=== PATIENT | male | born 1950 | race Caucasian/White ===

== ENCOUNTER → 2016-05-12 | Outpatient (CLI) | payer MEDICARE, OTHER ==
[~2016-05-12] MED LIST: ASCO10002 PO; ASPI-482 PO; ATORVASTATIN CA80 MG PO; CALC625T20 PO; CINN500C PO; FLAX100031 PO; GARL1500 PO; GINK120T3 PO; GUAR1PAC2 PO; MELA3TAB12 PO; METF500T4 PO; MULT-246 PO; OMEG1CAP28 PO; OMEP40CA5 PO; UBID100T5 PO; [UNRECOGNIZED DRUG - CODE] PO; [UNRECOGNIZED DRUG - CODE] PO
[2016-05-12 17:04] LABS: BASO # 0.1 x10^3/uL (0.0-0.2); BASO % 1 % (0-3); EOS % 2 % (0-3); HEMATOCRIT 45.4 % (39.0-53.0); LYMPH # 1.6 x10^3/uL (1.0-4.8); LYMPH % 15 % (24-48); MEAN CORPUSCULAR HEMOGLOBIN 31 pg (25-35); MEAN CORPUSCULAR HGB CONC 33 g/dL (31-37); MEAN CORPUSCULAR VOLUME 93 fL (79-100); MONO % 13 % (0-9); NEUT % 70 % (31-73); PLATELET COUNT 292 x10^3/uL (140-400); RED BLOOD COUNT 4.88 x10^6/uL (4.30-5.70); RED CELL DISTRIBUTION WIDTH 13.7 % (11.5-14.5); WHITE BLOOD COUNT 10.7 x10^3/uL (4.0-11.0)
[2016-05-12 17:30] LABS: ALBUMIN 4.1 g/dL (3.4-5.0); ALBUMIN/GLOBULIN RATIO 1.1 (1.0-1.7); CALCIUM 9.7 mg/dL (8.5-10.1); CREATININE 0.9 mg/dL (0.7-1.3); GFR 84.7; TOTAL BILIRUBIN 0.6 mg/dL (0.2-1.0)
== END | disposition home or self-care (01) ==
LOC: LAB 16:45
PROVIDERS: ATTEND Internal Medicine Hematology & Oncology
DX: Z85.72 Personal history of non-Hodgkin lymphomas (principal)
CPT/HCPCS: 36415; 80053; 82232; 82784; 85027

== ENCOUNTER → 2016-06-18 | Day surgery (SDC) | payer MEDICARE, OTHER ==
[~2016-06-18] MED LIST changes: +BENZ100C PO; +FENTANYL PF 100 MCG/2 ML VIAL. IV PRN; +HYDROMORPHONE 2 MG/ML VIAL. IV PRN; +IBUP200T77 PO; +IV RINGERS,LACTATED 1000ML 1,000 ML IV SCH; +LIDOCAINE 1% 1 ML SYRINGE. ID PRN; +LIDOCAINE 2% PF Vial for OR 5 ML VIAL. ONE; +MORPHINE SULFATE 2 MG/ML DISP.SYRIN. IV PRN; +ONDANSETRON PF 4 MG/2 ML VIAL. IV PRN; +OSEL75CA PO; +PROAIR HFA8.5 GM INH; +PROCHLORPERAZINE 10 MG/2 ML VIAL. IV PRN; +PROPOFOL 20 ML IV ONE
[2016-06-18 08:20] VITALS: BP 155/67
== END | disposition home or self-care (01) ==
LOC: ENDOS 06:26
PROVIDERS: ATTEND Internal Medicine Gastroenterology
DX: K57.30 Diverticulosis of large intestine without perforation or abscess without bleeding (principal); K64.1 Second degree hemorrhoids; E78.00 Pure hypercholesterolemia, unspecified; K21.9 Gastro-esophageal reflux disease without esophagitis; F32.9 Major depressive disorder, single episode, unspecified; E11.9 Type 2 diabetes mellitus without complications; E78.5 Hyperlipidemia, unspecified; M19.90 Unspecified osteoarthritis, unspecified site; Z87.39 Personal history of other diseases of the musculoskeletal system and connective tissue; Z72.89 Other problems related to lifestyle
CPT/HCPCS: 45378; 82947; J2704

== ENCOUNTER → 2016-06-21 | Outpatient (CLI) | payer MEDICARE, OTHER ==
[2016-06-18 08:20] VITALS: BP 155/67
[~2016-06-21] MED LIST changes: -FENTANYL PF 100 MCG/2 ML VIAL. IV PRN; -HYDROMORPHONE 2 MG/ML VIAL. IV PRN; -IV RINGERS,LACTATED 1000ML 1,000 ML IV SCH; -LIDOCAINE 1% 1 ML SYRINGE. ID PRN; -LIDOCAINE 2% PF Vial for OR 5 ML VIAL. ONE; -MORPHINE SULFATE 2 MG/ML DISP.SYRIN. IV PRN; -ONDANSETRON PF 4 MG/2 ML VIAL. IV PRN; -PROCHLORPERAZINE 10 MG/2 ML VIAL. IV PRN; -PROPOFOL 20 ML IV ONE
== END | disposition home or self-care (01) ==
LOC: LAB 10:33
PROVIDERS: ATTEND Internal Medicine Cardiovascular Disease
DX: E78.9 Disorder of lipoprotein metabolism, unspecified (principal)
CPT/HCPCS: 36415; 80061

== ENCOUNTER → 2016-11-05 | Outpatient (CLI) | payer MEDICARE, OTHER ==
[2016-06-18 08:20] VITALS: BP 155/67
[~2016-11-05] MED LIST changes: -CINN500C PO; +CINN500C2 PO; -GARL1500 PO; -MELA3TAB12 PO; +MELA3TAB43 PO; +[UNRECOGNIZED DRUG - CODE] PO
[2016-11-05 10:20] LABS: BASO % 1 % (0-3); EOS % 4 % (0-3); HEMATOCRIT 41.2 % (39.0-53.0); HEMOGLOBIN 14.4 g/dL (13.0-17.5); LYMPH # 1.8 x10^3/uL (1.0-4.8); LYMPH % 31 % (24-48); MEAN CORPUSCULAR HEMOGLOBIN 32 pg (25-35); MEAN CORPUSCULAR HGB CONC 35 g/dL (31-37); MEAN CORPUSCULAR VOLUME 92 fL (79-100); MONO % 14 % (0-9); NEUT % 51 % (31-73); PLATELET COUNT 282 x10^3/uL (140-400); RED CELL DISTRIBUTION WIDTH 13.8 % (11.5-14.5); WHITE BLOOD COUNT 5.9 x10^3/uL (4.0-11.0)
[2016-11-05 10:46] LABS: ALBUMIN 3.8 g/dL (3.4-5.0); ALBUMIN/GLOBULIN RATIO 1.1 (1.0-1.7); CALCIUM 8.7 mg/dL (8.5-10.1); CREATININE 0.8 mg/dL (0.7-1.3); GFR 96.7; TOTAL BILIRUBIN 0.3 mg/dL (0.2-1.0); TOTAL PROTEIN 7.3 g/dL (6.4-8.2)
== END | disposition home or self-care (01) ==
LOC: LAB 09:52
PROVIDERS: ATTEND Internal Medicine Hematology & Oncology
DX: Z85.72 Personal history of non-Hodgkin lymphomas (principal)
CPT/HCPCS: 36415; 80053; 82232; 83615; 85027

== ENCOUNTER → 2017-01-12 | Outpatient (CLI) | payer MEDICARE, OTHER ==
[2016-06-18 08:20] VITALS: BP 155/67
[2017-01-12 13:19] LABS: ALBUMIN 3.7 g/dL (3.4-5.0); CREATININE 0.9 mg/dL (0.7-1.3); GFR 84.4; POTASSIUM 4.2 mmol/L (3.5-5.1); TOTAL BILIRUBIN 0.5 mg/dL (0.2-1.0); TOTAL PROTEIN 7.3 g/dL (6.4-8.2)
[2017-01-12 13:20] LABS: CHOLESTEROL/HDL RATIO 2.8
[2017-01-12 13:22] LABS: BASO % 1 % (0-3); EOS % 3 % (0-3); HEMATOCRIT 44.4 % (39.0-53.0); HEMOGLOBIN 14.9 g/dL (13.0-17.5); LYMPH # 1.8 x10^3/uL (1.0-4.8); LYMPH % 26 % (24-48); MEAN CORPUSCULAR HEMOGLOBIN 32 pg (25-35); MEAN CORPUSCULAR HGB CONC 34 g/dL (31-37); MEAN CORPUSCULAR VOLUME 94 fL (79-100); MONO % 14 % (0-9); NEUT % 57 % (31-73); PLATELET COUNT 270 x10^3/uL (140-400); RED BLOOD COUNT 4.72 x10^6/uL (4.30-5.70); RED CELL DISTRIBUTION WIDTH 13.5 % (11.5-14.5); WHITE BLOOD COUNT 6.7 x10^3/uL (4.0-11.0)
== END | disposition home or self-care (01) ==
LOC: LAB 12:36
PROVIDERS: ATTEND Family Medicine
DX: Z12.5 Encounter for screening for malignant neoplasm of prostate (principal); E11.9 Type 2 diabetes mellitus without complications; E78.5 Hyperlipidemia, unspecified
CPT/HCPCS: 36415; 80053; 80061; 83036; 85025; G0103

== ENCOUNTER → 2017-01-21 | Outpatient (CLI) | payer MEDICARE, OTHER ==
[2016-06-18 08:20] VITALS: BP 155/67
== END | disposition home or self-care (01) ==
LOC: LAB 11:51
PROVIDERS: ATTEND Family Medicine
DX: E11.9 Type 2 diabetes mellitus without complications (principal); M79.1 Myalgia
CPT/HCPCS: 36415; 82550; 83605

== ENCOUNTER → 2017-05-04 | Outpatient (CLI) | payer MEDICARE, OTHER ==
[2017-05-04 17:16] LABS: ADD MAN DIFF? NO
[2017-05-04 17:21] LABS: BASO % 1 % (0-3); EOS # 0.2 x10^3/uL (0.0-0.7); EOS % 3 % (0-3); HEMATOCRIT 42.2 % (39.0-53.0); HEMOGLOBIN 14.3 g/dL (13.0-17.5); LYMPH # 1.6 x10^3/uL (1.0-4.8); LYMPH % 26 % (24-48); MEAN CORPUSCULAR HEMOGLOBIN 32 pg (25-35); MEAN CORPUSCULAR HGB CONC 34 g/dL (31-37); MEAN CORPUSCULAR VOLUME 93 fL (79-100); MONO # 0.7 x10^3/uL (0.0-1.1); MONO % 12 % (0-9); NEUT # 3.5 x10^3uL (1.8-7.7); NEUT % 58 % (31-73); PLATELET COUNT 320 x10^3/uL (140-400); RED BLOOD COUNT 4.52 x10^6/uL (4.30-5.70); RED CELL DISTRIBUTION WIDTH 13.2 % (11.5-14.5); WHITE BLOOD COUNT 6.1 x10^3/uL (4.0-11.0)
[2017-05-04 17:38] LABS: ALBUMIN 3.5 g/dL (3.4-5.0); ALBUMIN/GLOBULIN RATIO 0.9 (1.0-1.7); ALK PHOS 48 U/L (46-116); ALT (SGPT) 38 U/L (16-63); ANION GAP 10 (6-14); AST (SGOT) 20 U/L (15-37); BLOOD UREA NITROGEN 16 mg/dL (8-26); BUN/CREATININE RATIO 23 (6-20); CARBON DIOXIDE 27 mmol/L (21-32); CHLORIDE 104 mmol/L (98-107); CREATININE 0.7 mg/dL (0.7-1.3); GFR 112.8; GLUCOSE 120 mg/dL (70-99); LACTATE DEHYDROGENASE 143 U/L (85-227); POTASSIUM 4.1 mmol/L (3.5-5.1); SODIUM 141 mmol/L (136-145); TOTAL BILIRUBIN 0.5 mg/dL (0.2-1.0); TOTAL PROTEIN 7.3 g/dL (6.4-8.2)
[2017-05-07 06:17] LABS: BETA 2 MICROGLOB 1.2 mg/L (0.6-2.4)
== END | disposition home or self-care (01) ==
LOC: LAB 16:51
DX: C85.80 Other specified types of non-Hodgkin lymphoma, unspecified site (principal)
CPT/HCPCS: 36415; 80053; 82232; 83615; 85025

== ENCOUNTER → 2017-07-29 | Outpatient (CLI) | payer MEDICARE, OTHER ==
[2017-07-29 12:06] LABS: CHOLESTEROL 163 mg/dL (0-200); HDLC 51 mg/dL (40-60); LDLC 88 mg/dL (0-100); NON-HDL CHOLESTEROL 112 mg/dL (0-129); TRIGLYCERIDES 121 mg/dL (0-150); VLDLC 24 mg/dL (0-40)
[2017-07-29 12:08] LABS: CHOLESTEROL/HDL RATIO 3.2
== END | disposition home or self-care (01) ==
LOC: LAB 11:36
DX: Z86.39 Personal history of other endocrine, nutritional and metabolic disease (principal); E78.5 Hyperlipidemia, unspecified
CPT/HCPCS: 36415; 80061

== ENCOUNTER → 2017-11-24 | Outpatient (CLI) | payer MEDICARE, OTHER ==
[2017-11-24 08:24] LABS: ADD MAN DIFF? NO
[2017-11-24 08:30] LABS: BASO % 1 % (0-3); EOS # 0.2 x10^3/uL (0.0-0.7); EOS % 3 % (0-3); HEMATOCRIT 39.7 % (39.0-53.0); HEMOGLOBIN 13.8 g/dL (13.0-17.5); LYMPH # 1.4 x10^3/uL (1.0-4.8); LYMPH % 17 % (24-48); MEAN CORPUSCULAR HEMOGLOBIN 32 pg (25-35); MEAN CORPUSCULAR HGB CONC 35 g/dL (31-37); MEAN CORPUSCULAR VOLUME 92 fL (79-100); MONO # 1.1 x10^3/uL (0.0-1.1); MONO % 14 % (0-9); NEUT # 5.2 x10^3uL (1.8-7.7); NEUT % 65 % (31-73); PLATELET COUNT 277 x10^3/uL (140-400); RED CELL DISTRIBUTION WIDTH 13.5 % (11.5-14.5)
[2017-11-24 08:55] LABS: ALBUMIN 3.5 g/dL (3.4-5.0); ALK PHOS 47 U/L (46-116); ALT (SGPT) 67 U/L (16-63); ANION GAP 8 (6-14); AST (SGOT) 27 U/L (15-37); BLOOD UREA NITROGEN 14 mg/dL (8-26); BUN/CREATININE RATIO 18 (6-20); CALCIUM 8.7 mg/dL (8.5-10.1); CARBON DIOXIDE 26 mmol/L (21-32); CHLORIDE 105 mmol/L (98-107); CREATININE 0.8 mg/dL (0.7-1.3); GFR 96.4; GLUCOSE 132 mg/dL (70-99); LACTATE DEHYDROGENASE 159 U/L (85-227); POTASSIUM 3.9 mmol/L (3.5-5.1); SODIUM 139 mmol/L (136-145); TOTAL BILIRUBIN 0.4 mg/dL (0.2-1.0); TOTAL PROTEIN 6.9 g/dL (6.4-8.2)
[2017-11-26 06:17] LABS: BETA 2 MICROGLOB 1.3 mg/L (0.6-2.4)
== END | disposition home or self-care (01) ==
LOC: LAB 08:12
DX: I10 Essential (primary) hypertension (principal); E11.9 Type 2 diabetes mellitus without complications; E78.5 Hyperlipidemia, unspecified; E78.00 Pure hypercholesterolemia, unspecified; I25.10 Atherosclerotic heart disease of native coronary artery without angina pectoris; K21.9 Gastro-esophageal reflux disease without esophagitis; Z85.72 Personal history of non-Hodgkin lymphomas; Z95.5 Presence of coronary angioplasty implant and graft; Z87.19 Personal history of other diseases of the digestive system; Z86.39 Personal history of other endocrine, nutritional and metabolic disease; Z87.39 Personal history of other diseases of the musculoskeletal system and connective tissue
CPT/HCPCS: 36415; 80053; 82232; 83615; 85025

== ENCOUNTER → 2018-01-03 | Outpatient (CLI) | payer MEDICARE, OTHER ==
[2016-06-18 08:20] VITALS: BP 155/67
[~2018-01-03] MED LIST changes: +METF500T16 PO; -METF500T4 PO
--- NOTE | 2018-01-03 16:05 | CARD ---
MR#: [id number] Date of Study: 01/03/2018 Ordering Physician: SHIRA THAKUR, Referring Physician: SHIRA THAKUR, Tech: Radha Montelongo [facility] APPROVED REPORT INDICATION Cardiac Disease: CAD Reason : Patient complained of shortness of breath PROCEDURE The patient underwent an Exercise Stress Test using the Josué Protocol. Blood pressure, heart rate, a nd EKG were monitored. An Echocardiogram was performed by coroner technician in four stages in quad fashion. At peak stress four se lected images were obtained and placed side by side with resting images for comparison. STRESS ECHO FINDINGS The resting Echocardiogram showed normal left ventricular systolic contractility with an estimated Ej ection Fraction of about 60 %. The Resting Echocardiogram showed normal augmentation of myocardial wall segments using a 16 segment model. The Stress Echocardiogram showed normal augmentation of myocardial wall segments using a 16 segment m twyla. The Stress Echocardiogram left ventricular systolic contractility has an estimated Ejection Fraction of about 70%. Test Type: Exercise Stress Nurse/Tech: Micaela Faulkner RN Test Indications: CAD Cardiac History and Allergies: Previous heart cath with stents Medications: see EMR Medical History: see EMR Resting ECG: SR Resting Heart Rate: 66 bpm Resting Blood Pressure: 126/50mmHg Pretest Chest Pain: No chest pain Nurse/Tech Notes S1,S2 and lungs clear to auscultation. Consent: The procedure was explained to the patient in lay terms. Informed consent was witnessed. Aki eout was entered into [employer]. History and Stress Test performed by Beti Sunshine R.N. Stress Symptoms Fatigue POST EXERCISE Reason for Termination: Reached target heart rate, Fatigue Target HR: Yes Max HR: 182 bpm 119% of Maximum Predicted HR: 153 bpm Exercise duration: 9:41 min:sec, 4 Stage Exercise capacity: 10.1METs Max Blood Pressure: 190/65mmHg Blood Pressure response to exercise: Normal blood pressure response during stress. Heart Rate response to exercise: WNL Chest Pain: No. Arrhythmia: No. ST Change: Yes. Slightly more depressed ST segment in leads V3-V6. INTERPRETATION Stress EKG Conclusion: Baseline EKG showed sinus rhythm. Inferolateral ST depressions at peak stress suspicious for ischemia. No arrhythmias. Preliminary Notification Critical Value: No <Conclusion> Treadmill exercise stress echocardiogram did not show any evidence of ischemia or infarct. Normal left ventricle systolic function with ejection fraction estimated at 60%. Patient had good activity tolerance. Low risk for cardiac events. Signed by : Shad Valera, Electronically Approved : 01/03/2018 16:04:36
== END | disposition home or self-care (01) ==
LOC: ECHO 12:48
PROVIDERS: ATTEND Internal Medicine Cardiovascular Disease
DX: I25.10 Atherosclerotic heart disease of native coronary artery without angina pectoris (principal); R06.02 Shortness of breath; C85.80 Other specified types of non-Hodgkin lymphoma, unspecified site; E78.2 Mixed hyperlipidemia; I10 Essential (primary) hypertension; E11.9 Type 2 diabetes mellitus without complications; M17.9 Osteoarthritis of knee, unspecified; E78.00 Pure hypercholesterolemia, unspecified; F32.9 Major depressive disorder, single episode, unspecified; K21.9 Gastro-esophageal reflux disease without esophagitis; Z91.012 Allergy to eggs; Z88.0 Allergy status to penicillin; Z88.2 Allergy status to sulfonamides; Z86.39 Personal history of other endocrine, nutritional and metabolic disease; Z87.19 Personal history of other diseases of the digestive system; Z87.39 Personal history of other diseases of the musculoskeletal system and connective tissue
CPT/HCPCS: 93017; 93350

== ENCOUNTER → 2018-02-27 | Outpatient (CLI) | payer MEDICARE, OTHER ==
[2016-06-18 08:20] VITALS: BP 155/67
[2018-02-27 14:26] LABS: CHOLESTEROL/HDL RATIO 3.3
== END | disposition home or self-care (01) ==
LOC: LAB 13:21
PROVIDERS: ATTEND Internal Medicine Cardiovascular Disease
DX: I25.10 Atherosclerotic heart disease of native coronary artery without angina pectoris (principal)
CPT/HCPCS: 36415; 80061

== ENCOUNTER → 2018-06-02 | Outpatient (CLI) | payer MEDICARE, OTHER ==
[2016-06-18 08:20] VITALS: BP 155/67
[~2018-06-02] MED LIST changes: +ALBU2.5V8 INH; -PROAIR HFA8.5 GM INH
[2018-06-02 15:13] LABS: CALCIUM 9.4 mg/dL (8.5-10.1); CREATININE 0.8 mg/dL (0.7-1.3); GFR 96.4
== END | disposition home or self-care (01) ==
LOC: LAB 13:52
PROVIDERS: ATTEND Nurse Practitioner
DX: I10 Essential (primary) hypertension (principal)
CPT/HCPCS: 36415; 80048

== ENCOUNTER → 2018-06-22 | Outpatient (CLI) | payer MEDICARE, OTHER ==
[2016-06-18 08:20] VITALS: BP 155/67
[~2018-06-22] MED LIST changes: +GADOBUTROL 7.5 MMOL/7.5 ML VIAL IV ONE; +MELO15TA23 PO; +METH-37 PO
--- NOTE | 2018-06-22 12:28 | RAD ---
MRI of the cervical spine without and with contrast 06/22/2018 CLINICAL HISTORY: Neck pain. History of cervical fusion. TECHNIQUE: Unenhanced T1-weighted, T2-weighted and inversion recovery sagittal and gradient echo, T2-weighted and T1-weighted axial images of the cervical spine were obtained. After the intravenous administration of 7.5 cc of Gadavist, enhanced T1-weighted sagittal and axial images of the cervical spine were obtained. FINDINGS: Comparison is made to radiographs of the cervical spine dated 06/01/2018. Mild to moderate lateral curvature of the cervical spine is seen convex to the left. There is straightening of the normal cervical lordosis. The patient is post anterior discectomy and fusion using an anterior plate, bone screws and bone graft material at C4-5 and C5-6. Degenerative signal changes are seen involving the remaining discs of the cervical spine. Degenerative signal changes are seen within the marrow surrounding these discs. Loss of height of the C6-7 discs is noted. No area of abnormal signal intensity is seen involving the cervical spinal cord. At the C2-3 disc space there is a mild generalized disc bulge. Degenerative changes are seen involving the uncovertebral and facet joints, right greater than left. These findings when combined do not result in significant central spinal canal stenosis. Moderate right neural foraminal stenosis is seen. The left neural foramen is patent. At the C3-4 disc space there is a moderate generalized disc bulge. Degenerative changes are seen involving the uncovertebral and facet joints bilaterally. These findings when combined do not result in significant central spinal canal stenosis. Moderate bilateral neural foraminal stenosis is seen. At the C4-5 and C5-6 levels degenerative changes are seen involving the uncovertebral and facet joints, right greater than left. These findings do not result in significant central spinal canal stenosis. Mild bilateral neural foraminal stenosis is seen at C5-6. At the C6-7 disc space there is a moderate generalized disc bulge. Degenerative changes are seen involving the facet joints, right greater than left. These findings when combined result in mild to moderate right greater than left central spinal canal stenosis with mild right greater than left cord impingement. Moderate bilateral neural foraminal stenosis is seen. At the C7-T1 disc space there is a minimal generalized disc bulge. Degenerative changes are seen involving the facet joints bilaterally. These findings when combined do not result in significant central spinal canal or neural foraminal stenosis. IMPRESSION: 1. Post anterior discectomy and fusion at C4-5 and C5-6. 2. Degenerative changes are seen throughout the cervical spine. These findings results in mild to moderate right greater than left central spinal canal stenosis with mild right greater than left cord impingement at C6-7. Moderate right neural foraminal stenosis is seen at C2-3. Moderate bilateral neural foraminal stenosis is seen at C3-4 and C6-7. Mild bilateral neural foraminal stenosis is seen at C5-6. Electronically signed by: Edmond Barrera MD (06/22/2018 12:25 PM) [facility]
== END | disposition home or self-care (01) ==
LOC: EDSEX → MRI 10:44
PROVIDERS: ATTEND Family Medicine
DX: M48.02 Spinal stenosis, cervical region (principal); M50.23 Other cervical disc displacement, cervicothoracic region; M47.813 Spondylosis without myelopathy or radiculopathy, cervicothoracic region; M43.22 Fusion of spine, cervical region; M50.90 Cervical disc disorder, unspecified, unspecified cervical region
CPT/HCPCS: 72156; A9585

== ENCOUNTER → 2018-07-04 | Outpatient (CLI) | payer MEDICARE, OTHER ==
[2016-06-18 08:20] VITALS: BP 155/67
[~2018-07-04] MED LIST changes: -GADOBUTROL 7.5 MMOL/7.5 ML VIAL IV ONE
--- NOTE | 2018-07-04 20:08 | PAIN ---
DATE OF SERVICE: 07/04/2018 INITIAL CONSULTATION CHIEF COMPLAINT: Neck and right upper extremity pain. HISTORY OF PRESENT ILLNESS: This is a 67-year-old male who presents with history of pain in the base of the neck and right upper extremity for about 10 years, worse over the past 6-8 months, so he has been in trouble playing tennis as he cannot serve using his right hand to serve the ball was becoming much more difficult, more painful. The patient reports the pain is becoming more constant, throbbing, shooting into the right shoulder and biceps region, also in the posterior shoulder and base of the neck on the right side, worse with activity, raising his right arm over his head, repetitive motion with the right arm. The patient reports it awakens him from sleep about 5 times at night especially he lies on his right side, which is unable to do or stay sleep anymore. It does not affect his bowel or bladder control, but does affect his ability to walk and he feels he is off balance when his right shoulder hurting. The patient has had some physical therapy in the past, nothing recently, also chiropractic treatment in the past as well and doing exercise currently. The patient did have cervical surgery in the past, reports this feels different than it did at that time, which was 2003. The patient describes the pain as throbbing, shooting, becoming more constant, numbness and radiation of pain in the right upper extremity and hand occasionally where he feels it is fatiguing easily, but no actual loss of motor function. The patient rates his disability from 0-10, 10 being the worst as 7 to 10 with home responsibilities, 9 with recreation, 6 with social activity, 8 with occupation, 7 with sexual behavior, 7 with self-care and 7 with life support activities, especially sleeping. The patient did have MRI scan of the cervical spine showing C4-C5, C5-C6 multilevel degenerative changes with no central stenosis, mild bilateral neural foraminal stenosis, C5-C6, C6-C7 shows moderate generalized disk bulge right greater than left with mild to moderate right greater than left central spinal canal stenosis with mild right greater than left cord impingement and moderate bilateral neural foraminal stenosis, C7-T1 shows minimal generalized disk bulge without significant stenosis. PAST MEDICAL HISTORY: Significant for hypertension, diabetes, lymphoma, status post chemotherapy and radiation, history of hypertension, coronary artery disease, gastroesophageal reflux, arthritis. PREVIOUS SURGERY: Includes cervical laminectomy in 2003, right knee scope, left thigh blood clot extraction and tonsillectomy as a child. CURRENT MEDICATIONS: Include atorvastatin, metformin, bupropion, ProAir inhaler, ibuprofen, meloxicam, metformin, Robaxin, Coenzyme Q10, melatonin, multivitamins, garlic, chromium, ascorbic acid daily, baby aspirin, ginkgo biloba, flaxseed oil, fiber and calcium and Benicar. ALLERGIES: The patient is allergic to SULFA and PENICILLIN. SOCIAL HISTORY: The patient drinks about one alcoholic drink a day on average, does not smoke, does not use any illegal, illicit or recreational drugs. He is , lives with his spouse, lives locally in [place], [place]. Reports he is retired, but does enjoy playing tennis, which the current pain situation is limiting him significantly from doing. REVIEW OF SYSTEMS: The patient's review of systems is positive for those items mentioned in history of present illness. All systems reviewed and otherwise negative. It is complete, full, well documented on the patient's chart. PHYSICAL EXAMINATION: VITAL SIGNS: The patient's blood pressure is 150/81, pulse is 64, respirations 18, temperature is 97.7 degrees Fahrenheit, height is 5 feet 8 inches, weight is 181 pound. GENERAL: The patient is awake, alert, oriented, appropriate, very pleasant demeanor. HEENT: Head shows normocephalic, atraumatic. Extraocular movements are intact and symmetrical. The patient wears eye glasses. Oral cavity: Mucous membranes moist and pink. Dentition is intact. NECK: Shows anterior throat supple without palpable lymphadenopathy noted. Swallow reflex symmetrical. CHEST: Shows normal with inspection. Breath sounds clear to auscultation bilaterally. HEART: Shows S1, S2 clear. No murmurs auscultated. ABDOMEN: Soft, nontender, nondistended. No palpable organomegaly is noted. No rebound or guarding demonstrated. BACK: Shows spine grossly in the midline, normal-appearing cervical lordotic curvature, thoracic kyphotic curvature and lumbar lordotic curvature. Cervical paraspinous muscle shows symmetrical on inspection with palpation, shows some moderate tenderness diffusely in the inferior and middle aspect of the cervical paraspinous musculature, but is symmetrical without evidence of atrophy or hypertrophy. No trigger points. No difficulty with rotational motion both laterally as well as extension and flexion greater than 45 degrees right and left closer to 90 degrees as well as full flexion and full extension without pain reported. The patient's upper extremities showed deep tendon reflexes at 2+ in the biceps and triceps tendons. Motor exam is strong with approximately 4 on a scale of 5, but equal tank charger strength, bicep and tricep flexion is 4/5 and equal as well. Peripheral pulses are 2+ radial distribution. No peripheral edema is noted. Shoulder shrug is strong and intact without loss of strength on resistance, but with moderate tenderness in the right side with shoulder shrug. This is true with abduction of the shoulder to 90 degrees as well, some moderate tenderness in the right side, but again no loss of strength. SKIN: Shows warm and dry, good turgor. No edema. No sores, rashes, or bruising throughout. IMPRESSION: 1. This is a 67-year-old male with long history of pain, right upper extremity, base of the neck and shoulder, worse over the past 6 months or so. 2. MRI scan of cervical spine as noted. 3. History of diabetes. 4. History of hypertension and coronary artery disease. 5. History of lymphoma. PLAN: Options were discussed with the patient and the patient's spouse who accompanied him to his visit today including conservative medical management, physical therapy, interventional techniques. He would like to proceed with interventional techniques; however, he has a neurosurgical consultation later today and would like to discussed the options with his neurosurgeon as well. We will wait until that visit completed and if any further recommendations are made, otherwise, we will have him return for cervical epidural steroid injection as he would like to proceed with that if no immediate surgery is indicated. We will have the patient return later this week to plan on cervical epidural steroid injection at that time. BARBARA GENTILE MD DR: NAHOMI/rigoberto JOB#: [id number] / [id number] Dr. Chetan Felder
== END | disposition home or self-care (01) ==
LOC: EDSEX → PNCL 10:37
PROVIDERS: ATTEND Anesthesiology
DX: M54.2 Cervicalgia (principal); M79.641 Pain in right hand; M25.519 Pain in unspecified shoulder; R20.0 Anesthesia of skin; I10 Essential (primary) hypertension; E11.9 Type 2 diabetes mellitus without complications; I25.10 Atherosclerotic heart disease of native coronary artery without angina pectoris; K21.9 Gastro-esophageal reflux disease without esophagitis; M19.90 Unspecified osteoarthritis, unspecified site; Z88.2 Allergy status to sulfonamides; Z88.0 Allergy status to penicillin
CPT/HCPCS: G0463

== ENCOUNTER → 2018-08-17 | Outpatient (CLI) | payer MEDICARE, OTHER ==
[2016-06-18 08:20] VITALS: BP 155/67
[2018-08-17 15:05] LABS: CHOLESTEROL/HDL RATIO 2.5
== END | disposition home or self-care (01) ==
LOC: LAB 13:55
PROVIDERS: ATTEND Internal Medicine Cardiovascular Disease
DX: I25.10 Atherosclerotic heart disease of native coronary artery without angina pectoris (principal)
CPT/HCPCS: 36415; 80061; 83721

== ENCOUNTER → 2019-03-12 | Outpatient (CLI) | payer MEDICARE, OTHER ==
[2016-06-18 08:20] VITALS: BP 155/67
[~2019-03-12] MED LIST changes: +IOHEXOL 300 MG/ML 50 ML VIAL. IT ONE; +LIDOCAINE 1% Multi-Dose 20 ML VIAL. ID ONE; +OMEP40CA45 PO; -OMEP40CA5 PO
--- NOTE | 2019-03-12 13:30 | KCIC ---
Cervical myelogram History: Neck pain radiating into both arms Technique: Patient was informed of the risks to include pain, infection, bleeding, seizures, allergic reaction, nerve root injury. All questions were answered. Patient signed a written consent form for a cervical myelogram. The patient was placed in a prone oblique position. The patient was prepped and draped in the usual sterile fashion. 1% lidocaine was utilized for local anesthesia at the anticipated site of puncture of the right L2-L3 interlaminar space. A 19-gauge guiding needle was advanced into the soft tissues. Through the guiding needle, a 25 gauge Bandar needle was advanced until there was return of cerebral spinal fluid. Approximately 10 cc [id number]-300 were then injected during fluoroscopic visualization. The needles were removed. Patient was repositioned so as to allow for the flow of contrast into the cervical spine. The patient was then transferred to the CT department for CT examination of the cervical spine. There were no immediate complications. Fluoroscopy time: 36 seconds, 6 images Findings: There is no evidence of myelographic block. There is anterior cervical fusion hardware C4, C5, C6. There is multilevel cervical facet degenerative change. There is cervical levoscoliosis. Impression: 1. There is multilevel cervical facet degenerative change. There is anterior cervical fusion hardware C4-C6. There is cervical levoscoliosis. Electronically signed by: Nabil Leon MD (03/12/2019 1:27 PM) [facility]
--- NOTE | 2019-03-12 14:56 | KCIC ---
Cervical spine CT without contrast History: Neck pain into both arms, neck stiffness Technique: Noncontrast CT imaging was performed of the cervical spine. Multiplanar images are reviewed. Exposure: One or more of the following individualized dose reduction techniques were utilized for this examination: 1. Automated exposure control 2. Adjustment of the mA and/or kV according to patient size 3. Use of iterative reconstruction technique. Comparison: June 22, 2018 MRI cervical spine exam Findings: There is [id number] cervical levoscoliosis. There is anterior metallic plate and screws C4, C5, C6. There are incorporated interbody grafts C4-5 and C5-6. Cervical vertebral body stature is maintained. There is negligible anterior spondylolisthesis at C6-7 and C7-T1. There is mild C6-7 and C7-T1 degenerative disc disease. Atlantoaxial distance is within limits, associated degenerative change. There is adequate alignment of the lateral masses C1 relative to C2. Occipital condylar-C1 articulation is maintained. C2-C3: There is fusion of the right facet articulation, severe right facet hypertrophic change. There is right uncovertebral degenerative change. Combination of findings results in severe narrowing of the right neural foramen. Left neural foramen and spinal canal are adequate. C3-C4: There is severe bilateral facet degenerative change somewhat greater on the right. There is uncovertebral degenerative change bilaterally. There is severe neural foramina compromise bilaterally somewhat greater on the right. There is very minimal disc osteophyte complex. Central canal is adequate about 11 mm. C4-C5: There is fairly severe right facet degenerative change, to lesser degree on the left. Spinal canal and left neural foramen are adequate, mild narrowing of the right neural foramen from facet degenerative change. C5-6: There are posterior osteophytes. Central canal is adequate about 11 to 12 mm. There is severe right facet degenerative change, to a lesser degree on the left. There are uncovertebral osteophytes bilaterally. There is fairly severe neural foramina compromise bilaterally somewhat greater on the left. C6-7: There is minimal disc osteophyte complex and very shallow bulge. There is mild buckling of the ligamentum flavum. Central canal is minimally narrowed about 9 to 10 mm. There is severe facet degenerative change greater on the right. There is uncovertebral degenerative change somewhat greater on the right. There is fairly severe narrowing of the right neural foramen greater superiorly, [id number] on the left. C7-T1: Spinal canal and neural foramina are adequate. There is facet degenerative change greater on the right. Impression: 1. There is multilevel cervical facet and uncovertebral degenerative change contributing to multilevel significant neural foramina compromise greatest on the right at C6-7 and C2-C3 and bilaterally at C5-C6 and C3-C4. 2. There is jwti-jr-wxuovnji cervical levoscoliosis. There is negligible anterior spondylolisthesis at C6-7 and C7-T1. There has been anterior cervical fusion at C4-5 and C5-6, interbody fusion at these levels. 3. There is mild spinal stenosis C6-7. Electronically signed by: Nabil Leon MD (03/12/2019 2:52 PM) [facility]
== END | disposition home or self-care (01) ==
LOC: KCIC 09:05
PROVIDERS: ATTEND Neurological Surgery
DX: M54.2 Cervicalgia (principal)
CPT/HCPCS: 62302; 72126; Q9967; 72240

== ENCOUNTER → 2019-03-13 | Outpatient (CLI) | payer MEDICARE, OTHER ==
[2016-06-18 08:20] VITALS: BP 155/67
[~2019-03-13] MED LIST changes: -IOHEXOL 300 MG/ML 50 ML VIAL. IT ONE; -LIDOCAINE 1% Multi-Dose 20 ML VIAL. ID ONE
[2019-03-13 12:15] LABS: CHOLESTEROL/HDL RATIO 3.3
== END | disposition home or self-care (01) ==
LOC: LAB 11:17
PROVIDERS: ATTEND Internal Medicine Cardiovascular Disease
DX: I10 Essential (primary) hypertension (principal)
CPT/HCPCS: 36415; 80061; 83721

== ENCOUNTER 2019-04-09 16:24 | Emergency (ER) | payer MEDICARE, OTHER ==
[~2019-04-09] VITALS: Ht 172.7 cm; Wt 78.9 kg
[~2019-04-09 16:24] MED LIST changes: -ALOE25CA PO; -CHOL400C2 PO; -CHRO1TAB4 PO; -CIPR500T PO; -FISH400C3 PO; -HYDR-3164 PO; -LISI10TA2 PO; -MAGN400C PO; -METR500T PO; -MILK140C PO; -SUCR1TAB35 PO; -UBID50TA PO
[2019-04-09] MEDS ORDERED: MORPHINE SULFATE 10 MG/ML VIAL. IV STA (17:27)
[2019-04-09] MEDS ORDERED: IV NORMAL SALINE 1000ML BAG 1,000 ML IV ONE (17:30)
--- NOTE | 2019-04-09 17:35 | PHYS DOC ---
Past Medical History Past Medical History: CAD, Diabetes-Type II, GERD, High Cholesterol Past Surgical History: Other Additional Past Surgical Histo: CARDIAC STENT, LAMINECTOMY, R KNEE SX Alcohol Use: Occasionally Drug Use: None Adult General Chief Complaint Chief Complaint: ABDOMINAL PAIN HPI HPI Patient is a 68 year old male who presents with left lower quadrant pain that's been ongoing since last night. The patient states that the pain started after with the [employer] game when he was eating popcorn. He rates his pain as 10 out of 10 in severity and sharp. He states the pain is worse when eating and drinking. Denies history of diverticulitis. The patient states that before arrival he did have an appointment with anesthesia for preop for surgery in April. He states he had labs drawn that appointment. Review of Systems Review of Systems Constitutional: Denies fever or chills [] Eyes: Denies change in visual acuity, redness, or eye pain [] HENT: Denies nasal congestion or sore throat [] Respiratory: Denies cough or shortness of breath [] Cardiovascular: No additional information not addressed in HPI [] GI: Reports abdominal pain, denies nausea, vomiting, bloody stools or diarrhea [] : Denies dysuria or hematuria [] Musculoskeletal: Denies back pain or joint pain [] Integument: Denies rash or skin lesions [] Neurologic: Denies headache, focal weakness or sensory changes [] Endocrine: Denies polyuria or polydipsia [] Complete systems were reviewed and found to be within normal limits, except as documented in this note. Current Medications Current Medications Current Medications Medications (Trade) Dose Ordered Sig/[facility] Start Time Stop Time Status Last Admin Dose Admin Acetaminophen (Tylenol) 1,000 mg 1X STAT 04/09/19 18:35 04/09/19 18:37 DC 04/09/19 19:09 1,000 MG Info (CONTRAST GIVEN -- Rx MONITORING) 1 each PRN DAILY PRN 04/09/19 17:45 04/11/19 17:44 Iohexol (Omnipaque 300 Mg/ml) 75 ml 1X ONCE 04/09/19 18:00 04/09/19 18:01 DC 04/09/19 17:47 75 ML Morphine Sulfate (Morphine Sulfate) 5 mg 1X STAT 04/09/19 17:27 04/09/19 17:29 DC Ondansetron HCl (Zofran) 4 mg 1X ONCE 04/09/19 17:45 04/09/19 17:46 DC 04/09/19 18:13 4 MG Sodium Chloride 1,000 ml @ 1,000 mls/hr 1X ONCE 04/09/19 17:30 04/09/19 18:29 DC 04/09/19 18:14 1,000 MLS/HR Allergies Allergies Allergies Coded Allergies Type Severity Reaction Last Updated Verified Penicillins Allergy Intermediate 06/18/16 Yes Sulfa (Sulfonamide Antibiotics) Allergy Intermediate 06/18/16 Yes latex Allergy Intermediate 04/09/19 Yes egg Adverse Reaction Unknown Unknown 04/09/19 Yes Physical Exam Physical Exam Constitutional: Well developed, well nourished, no acute distress, non-toxic appearance. [] HENT: Normocephalic, atraumatic, bilateral external ears normal, oropharynx moist, no oral exudates, nose normal. [] Eyes: PERRLA, EOMI, conjunctiva normal, no discharge. [] Neck: Normal range of motion, no tenderness, supple, no stridor. [] Cardiovascular:Heart rate regular rhythm, no murmur [] Lungs & Thorax: Bilateral breath sounds clear to auscultation [] Abdomen: Bowel sounds normal, soft, Diffuse abd pain localized to LLQ, no masses, no pulsatile masses. [] Skin: Warm, dry, no erythema, no rash. [] Neurologic: Alert and oriented X 3, normal motor function, normal sensory function, no focal deficits noted. [] Psychologic: Affect normal, judgement normal, mood normal. [] Current Patient Data Vital Signs Vital Signs Date Time Temp Pulse Resp B/P (MAP) Pulse Ox O2 Delivery O2 Flow Rate FiO2 04/09/19 17:07 98.8 64 16 149/68 (95) 99 Room Air 98.8 Lab Values Laboratory Tests Test 04/09/19 17:35 04/09/19 18:18 Lipase 37 U/L (73-393) L Urine Collection Type Unknown Urine Color Yellow Urine Clarity Clear Urine pH 7.5 Urine Specific Boss 1.010 Urine Protein Negative mg/dL (NEG-TRACE) Urine Glucose (UA) Negative mg/dL (NEG) Urine Ketones (Stick) Negative mg/dL (NEG) Urine Blood Negative (NEG) Urine Nitrite Negative (NEG) Urine Bilirubin Negative (NEG) Urine Urobilinogen Dipstick 0.2 mg/dL (0.2 mg/dL) Urine Leukocyte Esterase Negative (NEG) Urine RBC 0 /HPF (0-2) Urine WBC 0 /HPF (0-4) Urine Bacteria 0 /HPF (0-FEW) EKG EKG [] Radiology/Procedures Radiology/Procedures [][facility] [address] [place] [address] IMAGING REPORT Signed PATIENT: STUART PEREZ ACCOUNT: [id number] : 1950 LOCATION: ER AGE: 68 SEX: M EXAM STATUS: REG ER ORD. PHYSICIAN: ELSY LEVY APRN REASON: LLQ abdominal pain PROCEDURE: CT ABD PELV W/ IV CONTRST ONLY CT SCAN OF THE ABDOMEN AND PELVIS WITH IV CONTRAST. History: Left lower quadrant abdominal pain, previous history of lymphoma Comparison:None. Procedure: Contiguous axial images of the abdomen and pelvis were performed after the administration of 75 cc of Omni 300 IV contrast. Oral contrast: No. Findings: There is a 6 mL length of moderate wall thickening of the the distal descending colon with mild surrounding inflammation. Is moderate sigmoid diverticulosis. The appendix is normal. Liver: Unremarkable Spleen: Unremarkable Pancreas: Unremarkable Adrenal Glands: Unremarkable Kidneys: Unremarkable There is no mass or lymphadenopathy. There is no free air. There is no free fluid. The urinary bladder is fairly distended but appears normal. The prostate appears normal. The gallbladder appears normal. Impression: Moderate wall thickening of the distal descending colon with mild stranding inflammation. The appearance is nonspecific but suggests an adenocarcinoma. Diverticulitis is felt to be less likely. Recommend follow-up endoscopy. PQRS Compliance Statement: One or more of the following individualized dose reduction techniques were utilized for this examination: 1. Automated exposure control 2. Adjustment of the mA and/or kV according to patient size 3. Use of iterative reconstruction technique Electronically signed by: Zach Morse III, MD (04/09/2019 6:41 PM) [facility] DICTATED and SIGNED BY: ZACH MORSE III, MD DATE: 04/09/19 0344 Course & Med Decision Making Course & Med Decision Making Pertinent Labs and Imaging studies reviewed. (See chart for details) Will get Lipase, UA, CT and supportive care. Patient had CBC, and CMP drawn before arrival by anesthesia. Labs were unremarkable. CT reading thought that there might be a possible adenocarcinoma. I discussed with Dr. Moore at 1920. Based on Clinical presentation patient appears to be stable and is not having rectal bleeding. Dr. Moore will see outpatient. Discussed with patient and offered admission for pain control. Patient was wanting to go home and try treatment outpatient. Will prescribe [place] and then will treat for Diverticulitis. Patient is okay with this plan and will follow up with GI. Faith Disclaimer Faith Disclaimer This electronic medical record was generated, in whole or in part, using a voice recognition dictation system. Departure Departure Impression: Primary Impression: Abdominal pain Disposition: HOME, SELF-CARE Condition: STABLE Referrals: Artur GARNICA MD (PCP) YOLETTE MOORE MD Patient Instructions: Diverticulitis Additional Instructions: Thank you for visiting [facility]. We appreciate you trusting us with your care. If any additional problems come up don't hesitate to return to visit us. Please follow up with your primary care provider so they can plan additional care if needed and know about the problem that you had. If symptoms worsen come back to the Emergency Department. Any concerning symptoms that start such as chest pain, shortness of air, weakness or numbness on one side of the body, running high fevers or any other concerning symptoms return to the ER. You have been prescribed an antibiotic today to help fight your infection. Please take all of the antibiotic as directed. If after 48 hours the infection is not improving, please return for more care. If the infection worsens, return to ER for additional care. Scripts Hydrocodone/Apap 5-325 (NORCO 5-325 TABLET) 1 Each Tablet 1 TAB PO PRN Q6HRS PRN for PAIN for 3 Days, #12 TAB 0 Refills Prov: ELSY LEVY APRN 04/09/19 Ciprofloxacin Hcl (CIPROFLOXACIN HCL) 500 Mg Tablet 1 TAB PO BID for 10 Days, #20 TAB Prov: ELSY LEVY APRN 04/09/19 Metronidazole (FLAGYL) 500 Mg Tablet 500 MG PO TID for 10 Days, #30 TAB Prov: ELSY LEVY APRN 04/09/19 Problem Qualifiers Primary Impression: Abdominal pain Abdominal location: left lower quadrant Qualified Codes: R10.32 - Left lower quadrant pain ELSY LEVY APRN Apr 09, 2019 17:35
[2019-04-09] MEDS ORDERED: MILK140C PO (17:41)
[2019-04-09] MEDS ORDERED: FISH400C3 PO (17:41)
[2019-04-09] MEDS ORDERED: SUCR1TAB35 PO (17:41)
[2019-04-09] MEDS ORDERED: CINN500C2 PO (17:41)
[2019-04-09] MEDS ORDERED: LISI10TA2 PO (17:41)
[2019-04-09] MEDS ORDERED: CHOL400C2 PO (17:41)
[2019-04-09] MEDS ORDERED: MAGN400C PO (17:41)
[2019-04-09] MEDS ORDERED: UBID50TA PO (17:41)
[2019-04-09] MEDS ORDERED: CHRO1TAB4 PO (17:41)
[2019-04-09] MEDS ORDERED: ALOE25CA PO (17:41)
[2019-04-09] MEDS ORDERED: CONTRAST GIVEN. MC PRN (17:45)
[2019-04-09] MEDS ORDERED: ONDANSETRON PF 4 MG/2 ML VIAL. IV ONE (17:45)
[2019-04-09] MEDS ORDERED: IOHEXOL 300 MG/ML 100ML VIAL. IV ONE (18:00)
[2019-04-09 18:35] LABS: BILIRUBIN,URINE NEGATIVE (NEG); CLARITY,URINE CLEAR; COLOR,URINE YELLOW; NITRITE,URINE NEGATIVE (NEG); PH,URINE 7.5; PROTEIN,URINE NEGATIVE (NEG-TRACE); UROBILINOGEN,URINE 0.2 mg/dL (0.2 mg/dL)
[2019-04-09] MEDS ORDERED: ACETAMINOPHEN 500 MG TABLET PO STA (18:35)
--- NOTE | 2019-04-09 18:44 | RAD ---
CT SCAN OF THE ABDOMEN AND PELVIS WITH IV CONTRAST. History: Left lower quadrant abdominal pain, previous history of lymphoma Comparison:None. Procedure: Contiguous axial images of the abdomen and pelvis were performed after the administration of 75 cc of Omni 300 IV contrast. Oral contrast: No. Findings: There is a 6 mL length of moderate wall thickening of the the distal descending colon with mild surrounding inflammation. Is moderate sigmoid diverticulosis. The appendix is normal. Liver: Unremarkable Spleen: Unremarkable Pancreas: Unremarkable Adrenal Glands: Unremarkable Kidneys: Unremarkable There is no mass or lymphadenopathy. There is no free air. There is no free fluid. The urinary bladder is fairly distended but appears normal. The prostate appears normal. The gallbladder appears normal. Impression: Moderate wall thickening of the distal descending colon with mild stranding inflammation. The appearance is nonspecific but suggests an adenocarcinoma. Diverticulitis is felt to be less likely. Recommend follow-up endoscopy. RS Compliance Statement: One or more of the following individualized dose reduction techniques were utilized for this examination: 1. Automated exposure control 2. Adjustment of the mA and/or kV according to patient size 3. Use of iterative reconstruction technique Electronically signed by: Prem Melgar III, MD (04/09/2019 6:41 PM) [facility]
[2019-04-09 18:48] LABS: BACTERIA,URINE 0 /HPF (0-FEW); RBC,URINE 0 /HPF (0-2); WBC,URINE 0 /HPF (0-4)
[2019-04-09] MEDS ORDERED: CIPR500T PO (19:46)
[2019-04-09] MEDS ORDERED: HYDR-3164 PO (19:46)
[2019-04-09] MEDS ORDERED: METR500T PO (19:46)
[2019-04-09 20:10] VITALS: BP 121/60
== END 2019-04-09 20:10 | disposition home or self-care (01) ==
LOC: EDSEX 16:24 → ER 16:24
DX: R10.32 Left lower quadrant pain (principal); I25.10 Atherosclerotic heart disease of native coronary artery without angina pectoris; E11.9 Type 2 diabetes mellitus without complications; K21.9 Gastro-esophageal reflux disease without esophagitis; E78.00 Pure hypercholesterolemia, unspecified; Z88.0 Allergy status to penicillin; Z88.2 Allergy status to sulfonamides; Z91.040 Latex allergy status; Z91.012 Allergy to eggs
CPT/HCPCS: 36415; 74177; 81001; 83690; 96374; 99285; J2405; J7030; Q9967

== ENCOUNTER → 2019-04-09 | Outpatient (CLI) | payer MEDICARE, OTHER ==
[2016-06-18 08:20] VITALS: BP 155/67
[~2019-04-09] MED LIST changes: +ALOE25CA PO; +CHOL400C2 PO; +CHRO1TAB4 PO; +CIPR500T PO; +FISH400C3 PO; +HYDR-3164 PO; +LISI10TA2 PO; +MAGN400C PO; +METR500T PO; +MILK140C PO; +SUCR1TAB35 PO; +UBID50TA PO
--- NOTE | 2019-04-09 15:52 | EKG ---
[facility] [address] [place] [address] Test Date: 2019-04-09 Test Time: 15:36:38 Pat Name: STUART PEREZ Department: Room: Gender: F Adult Parole Officer: : 1950 Requested By: JOAQUIN MCMULLEN Order Number: [id number] Reading MD: Shad Valera Measurements Intervals [place] Rate: 54 P: 34 GA: 166 QRS: 36 QRSD: 82 T: 38 QT: 382 QTc: 364 Interpretive Statements SINUS RHYTHM NORMAL ECG Electronically Signed On 04-10-2019 11:07:42 HEAD OF MUSIC by Shad Valera
[2019-04-09 15:53] LABS: BASO % 0 % (0-3); EOS # 0.2 x10^3/uL (0.0-0.7); EOS % 2 % (0-3); HEMATOCRIT 41.2 % (36.0-47.0); LYMPH # 1.2 x10^3/uL (1.0-4.8); LYMPH % 13 % (24-48); MEAN CORPUSCULAR HEMOGLOBIN 31 pg (25-35); MEAN CORPUSCULAR HGB CONC 34 g/dL (31-37); MEAN CORPUSCULAR VOLUME 92 fL (79-100); MONO # 1.2 x10^3/uL (0.0-1.1); MONO % 14 % (0-9); NEUT # 6.5 x10^3/uL (1.8-7.7); NEUT % 71 % (31-73); PLATELET COUNT 288 x10^3/uL (140-400); RED BLOOD COUNT 4.48 x10^6/uL (3.50-5.40); RED CELL DISTRIBUTION WIDTH 13.4 % (11.5-14.5); WHITE BLOOD COUNT 9.1 x10^3/uL (4.0-11.0)
[2019-04-09 16:09] LABS: ALBUMIN 3.7 g/dL (3.4-5.0); CALCIUM 9.5 mg/dL (8.5-10.1); CREATININE 0.8 mg/dL (0.6-1.0); GFR 71.3; TOTAL BILIRUBIN 0.7 mg/dL (0.2-1.0); TOTAL PROTEIN 7.3 g/dL (6.4-8.2)
== END | disposition home or self-care (01) ==
LOC: EDSEX → SURGPAT 13:24
PROVIDERS: ATTEND Neurological Surgery
DX: Z01.818 Encounter for other preprocedural examination (principal); M54.12 Radiculopathy, cervical region; Z88.0 Allergy status to penicillin; Z88.2 Allergy status to sulfonamides; Z79.899 Other long term (current) drug therapy
CPT/HCPCS: 36415; 80053; 82306; 83036; 85025; 87641; 93005

== ENCOUNTER → 2019-04-27 | Day surgery (SDC) | payer MEDICARE, OTHER ==
[~2019-04-27] MED LIST changes: +ALOE25CA PO; +CHOL400C2 PO; +CHRO1TAB4 PO; +CIPR500T PO; +DOCU-153 PO; +FISH400C3 PO; +HYDR-2761 PO; +HYDR-3164 PO; +IV RINGERS,LACTATED 1000ML 1,000 ML IV SCH; +LISI10TA2 PO; +MAGN400C PO; +METH750T2 PO; +METR500T PO; +MILK140C PO; +PROPOFOL 40 ML IV ONE; +SUCR1TAB35 PO; +UBID50TA PO
[2019-04-27 09:05] VITALS: BP 129/79
--- NOTE | 2019-04-27 11:38 | CONS ---
DATE OF CONSULTATION: 04/27/2019 REFERRING PHYSICIAN: Rojelio Garnica MD REASON: Abnormal CAT scan and possible colonic stricture. HISTORY OF PRESENT ILLNESS: This is a 68-year-old male with past medical history is significant for colonic polyps, diverticular disease, GERD, organic heart disease, status post angioplasty and stenting as well as diabetes, hyperlipidemia is seen for interval colon exam. Recent attack of diverticulitis and pain, left lower quadrant. I did an Interval CT scan, which raised the question of a stricture in the left colon. Optical visualization was recommended. There has been no bleeding, no change in bowel habits. No fevers, night sweats, chills, additional constitutional symptoms. He is otherwise without additional complaints. PAST MEDICAL HISTORY: Hyperlipidemia, hypertension, diabetes, colonic polyps, diverticular disease. FAMILY HISTORY: Significant for colon cancer with his mother. ALLERGIES: PENICILLIN AND SULFA. MEDICATIONS: Include hydrocodone, aspirin, atorvastatin, bupropion, vitamin D, fish oil, lisinopril, melatonin, metformin, Carafate. SOCIAL HISTORY: Nonsmoker, social drinker. PAST SURGICAL HISTORY: Significant for back surgery, tonsillectomy and cardiac valve replacement. REVIEW OF SYSTEMS: Per records. PHYSICAL EXAMINATION: GENERAL: Reveals a well-nourished, well-developed male who is alert, cooperative, in no acute distress. LUNGS: Clear. CARDIOVASCULAR: S1, S2 without S3, S4 or appreciable murmur. ABDOMEN: Reveals soft abdomen, normal bowel sounds, without appreciable hepatosplenomegaly. EXTREMITIES: Reveals no cyanosis, clubbing or edema. IMPRESSION: History of colonic polyps and abnormal CT scan with possible colonic cancer with family history, optical visualization. Interval colonoscopy is recommended. Risks and benefits discussed with the patient with risk of hemorrhage and perforation and is willing to proceed at this time. KERI YEE MD DR: WILL/rigoberto JOB#: [id number] / [id number] ecc Artur GARNICA MD
== END ==
LOC: ENDOS 06:57
PROVIDERS: ATTEND Internal Medicine Gastroenterology
DX: R10.32 Left lower quadrant pain (principal); K57.30 Diverticulosis of large intestine without perforation or abscess without bleeding; K64.0 First degree hemorrhoids; K21.9 Gastro-esophageal reflux disease without esophagitis; E11.9 Type 2 diabetes mellitus without complications; E78.5 Hyperlipidemia, unspecified; Z88.1 Allergy status to other antibiotic agents; Z88.0 Allergy status to penicillin; Z86.010 Personal history of colon polyps; Z72.89 Other problems related to lifestyle; Z79.84 Long term (current) use of oral hypoglycemic drugs
CPT/HCPCS: 45378; J2704

== ENCOUNTER 2019-05-03 07:04 | Observation (INO) | payer MEDICARE, OTHER ==
--- NOTE | 2019-05-02 15:31 | HP ---
ADMIT DATE: 05/03/2019. Date of surgery : 05/03/2019. HISTORY OF PRESENT ILLNESS: The patient is a pleasant 68-year-old who is having problems with neck and right shoulder pain. That pain has been present for years. It became much more significant about 5 years ago and is slowly worsening. He rates his pain as an 8-9/10. He says that exercise initially seems to help, but seems to worsen the problem with time. In 2018, he underwent physical therapy, which did not give him significant relief. PAST MEDICAL HISTORY: Angina, arthritis, cancer, chest pain, heart trouble or disease, hypertension, liver disease, radiation treatments, scoliosis, diabetes. PAST SURGICAL HISTORY: Cervical laminectomy in 2004, right side surgery. FAMILY HISTORY: Alzheimer's, cancer, diabetes, heart problems and disease, hypertension, RI at an early age, migraine headaches. SOCIAL HISTORY: Retired. . Exercises weekly. Denies substance abuse. Drinks alcohol 1-2 times daily. Drinks coffee, soda and tea daily. ALLERGIES: PENICILLIN, SULFA, LATEX. CURRENT MEDICATIONS: Atorvastatin, bupropion, meloxicam, metformin, methocarbamol, aspirin, Carafate, acromion, CoQ10, cinnamon, fiber, flaxseed oil, Garcinia, Cambogia, garlic, ginkgo biloba, magnesium, melatonin, milk thistle, triple omega complex, vitamin C. REVIEW OF SYSTEMS: A 12-point review of systems was obtained and is noncontributory except that mentioned above. PHYSICAL EXAMINATION: NEUROSURGERY EXAMINATION: GENERAL APPEARANCE: Alert, pleasant, no acute distress. HEAD: Normocephalic and atraumatic. NECK AND THYROID: [id number]-[id number] tenderness with palpation of posterior cervical region, well-healed incision. SKIN: Warm and dry. MUSCULOSKELETAL: Cervical paraspinal muscle bulk is normal, restricted range of motion of the cervical spine, normal range of motion of the upper extremities bilaterally. EXTREMITIES: No clubbing, cyanosis or edema. NEUROLOGIC: Alert and oriented x 3, normal recent and remote memory. Strength 5/5 in bilateral upper and lower extremities, sensory was intact to light touch in the upper and lower extremities. Reflexes are present and symmetric in the upper and lower extremities bilaterally, normal gait. IMAGING: I reviewed cervical MRI scan. On that study, there is severe foraminal narrowing present at C3-C4 on the right. ASSESSMENT/ PLAN: I believe the problems at C3-C4 are responsible for his pain. My recommendation at this point is that he consider posterior cervical hemilaminotomy, medial facetectomy to decompress the nerve root. I did discuss this with him in detail including the technique, risks, and expected postoperative course. He understands. He would like to go ahead. We will make the arrangements. JOAQUIN MCMULLEN MD DR: DOMINIC/rigoberto JOB#: [id number] / [id number] SOUMYA
[2019-05-03] VITALS (10 sets, daily range): BP systolic 82–150; BP diastolic 60–73
[~2019-05-03] VITALS: Ht 172.7 cm; Wt 78.9 kg
[~2019-05-03 07:04] MED LIST changes: +BACITRACIN 50,000 UNIT in IV NORMAL SALINE 1000ML BAG 1,000 ML IRR ONE; -DOCU-153 PO; -HYDR-2761 PO; +HYDROmorphone 2 MG/ML VIAL IV PRN; +LIDOCAINE 1% PF 2 ML VIAL. ID PRN; -METH750T2 PO; +MORPHINE SULFATE 2 MG/ML VIAL. IV PRN; +ONDANSETRON PF 4 MG/2 ML VIAL. IV PRN; +PROCHLORPERAZINE 10 MG/2 ML VIAL. IV PRN; -PROPOFOL 40 ML IV ONE; +VANCOMYCIN 1GM IVPB FOR OMNI 250 ML IV PRN; +fentaNYL PF VIAL 100 MCG/2 ML VIAL IV PRN
[2019-05-03] MEDS ORDERED: BUPIVACAINE-EPI 0.5%-1:200000 MPF 30 ML VIAL. ONE (07:18)
[2019-05-03] MEDS ORDERED: GELATIN SPONGE SIZE 100. ONE (07:18)
[2019-05-03] MEDS ORDERED: KETOROLAC 60 MG/2 ML VIAL. ONE (07:19)
[2019-05-03] MEDS ORDERED: THROMBIN TOPICAL 20,000 UNIT SPRAY.SYRN KIT TP ONE (07:19)
[2019-05-03] MEDS ORDERED: REMIFENTANIL 2 MG VIAL. IV ONE (08:04)
[2019-05-03] MEDS ORDERED: PROPOFOL 20 ML IV ONE (08:04)
[2019-05-03] MEDS ORDERED: ONDANSETRON PF 4 MG/2 ML VIAL. ONE ×2 (08:04→10:13)
[2019-05-03] MEDS ORDERED: DEXAMETHASONE SOD PHOS 20 MG/5 ML VIAL. ONE (08:04)
[2019-05-03] MEDS ORDERED: PHENYLEPHRINE 10 MG/ML VIAL. ONE (08:04)
[2019-05-03] MEDS ORDERED: MIDAZOLAM HCL/PF 2 MG/2 ML VIAL. ONE (08:04)
[2019-05-03] MEDS ORDERED: LIDOCAINE 2% PF 5 ML VIAL. ONE (08:04)
[2019-05-03] MEDS ORDERED: SUCCINYLCHOLINE 200 MG/10 ML VIAL. ONE (08:04)
[2019-05-03] MEDS ORDERED: ROCURONIUM 50 MG/5 ML VIAL. ONE (08:04)
[2019-05-03] MEDS ORDERED: PROPOFOL 100 ML IV ONE (08:13)
[2019-05-03] MEDS ORDERED: INSULIN LISPRO 100 UNIT/ML 3ML VIAL for OP,RR ONLY. SQ PRN (08:15)
[2019-05-03] MEDS ORDERED: GLYCOPYRROLATE 1 MG/5 ML VIAL. ONE (09:16)
[2019-05-03] MEDS ORDERED: NEOSTIGMINE METHYLSULFATE 5 MG/5 ML SYRINGE. ONE (10:13)
[2019-05-03] MEDS ORDERED: DESFLURANE > 120 MINUTES IH ONE (10:34)
[2019-05-03] MEDS ORDERED: ePHEDrine PF IN SALINE 50 MG/10 ML SYRINGE. IV ONE (10:34)
--- NOTE | 2019-05-03 11:33 | OP ---
DATE OF SURGERY: 05/03/2019 PREOPERATIVE DIAGNOSIS: Foraminal narrowing at C3-C4 right with right cervical radiculopathy. POSTOPERATIVE DIAGNOSIS: Foraminal narrowing at C3-C4 right with right cervical radiculopathy. OPERATION PERFORMED: Posterior cervical hemilaminotomy and medial facetotomy at C3-C4, right. The operation was done with EMG monitoring, SSEP monitoring, motor evoked potentials, fluoroscopy, and microscopic dissection. SURGEON: Fitz Mcmullen M.D. PLUMBING INSPECTOR: KRIS Segovia assisted with the surgery. She assisted with the exposure, the microdecompression, as well as a closure. OPERATIVE INDICATIONS: The patient is a pleasant 68-year-old who in the past has undergone a fusion from C4 inferiorly from an anterior approach. He then developed problems with a right cervical radiculopathy and found to have significant neural foraminal narrowing at C3-C4 on the right, and I recommended posterior cervical hemilaminotomy, medial facetotomy, and decompression of the nerve root there. He understood and wished to go ahead. DESCRIPTION OF PROCEDURE: Under general endotracheal anesthesia, the patient was positioned prone in Echavarria pins. His posterior cervical region was then clipped, prepped, and draped in standard fashion. TEN hose and AV impulse boots were applied for DVT prophylaxis. The microscope was draped. Fluoroscopy was draped and brought into field. Ancef 2 gram was given less than 1 hour prior to initiation of the surgery. Using fluoroscopic guidance, a midline posterior incision was made over the C3-C4 interspace. I dissected down through the skin and subcutaneous tissue, reflected the paracervical muscles, and placed a [place] microdisk retractor. I brought in the microscope. Using the high speed air drill, I burred somewhat medially and could visualize the dura and then thinned the bone from medial to lateral and then trimmed this with a 2 mm micro Kerrison. I worked to the lateral edge of the dura and then worked laterally. There was considerable arthritic degenerative change and the opening into the foramen was obscured. I drilled with a high speed air drill in this location and gradually thinned the bone which was about a 1 mm followed by 2 mm Kerrisons to pass and decompress the nerve root. At this point, I then irrigated with antibiotic solution. I was easily able to pass a blunt hook out through the foramen. After irrigation, I did lay Gelfoam over the hemilaminotomy site and then after perfect hemostasis had been obtained and removed the retractor, obtained hemostasis in the muscle and then I closed the wound in layers with absorbable suture. The skin was closed with skin pernell. The operation went very well. FITZ MCMULLEN MD DR: DOMINIC/rigoberto JOB#: [id number] / [id number] SOUMYA
[2019-05-03] MEDS ORDERED: ceFAZolin 2GM PREMIX 2 GM/50 ML BAG IV ONE (12:00)
[2019-05-03] MEDS ORDERED: fentaNYL PF VIAL 100 MCG/2 ML VIAL ONE (12:02)
[2019-05-03] MEDS: fentaNYL PF VIAL 100 MCG/2 ML VIAL IV PRN ×2 (12:05→12:39)
[2019-05-03] MEDS ORDERED: POTASSIUM CL 20MEQ D5-0.45NACL 1,000 ML IV SCH (13:14)
[2019-05-03] MEDS ORDERED: NALOXONE 0.4 MG/ML VIAL. IV PRN (13:15)
[2019-05-03] MEDS ORDERED: fentaNYL PF VIAL 100 MCG/2 ML VIAL IVP PRN (13:15)
[2019-05-03] MEDS ORDERED: diphenhydrAMINE HCL 25 MG CAPSULE PO PRN (13:15)
[2019-05-03] MEDS ORDERED: SUCRALFATE 1 GM TABLET. PO PRN (13:15)
[2019-05-03] MEDS ORDERED: CALCIUM CARBONATE 500 MG TAB.CHEW PO PRN (13:15)
[2019-05-03] MEDS ORDERED: 0.9 % SODIUM CHLORIDE 10 ML DISP.SYRIN. IV PRN (13:15)
[2019-05-03] MEDS ORDERED: ACETAMINOPHEN 325 MG TABLET. PO PRN (13:15)
[2019-05-03] MEDS ORDERED: MAG HYDROX/ALUMINUM HYD/SIMETH 30 ML ORAL.SUSP PO PRN (13:15)
--- NOTE | 2019-05-03 14:12 | NUR ---
Patient arrived to the unit in a bed from PACU around 1325. He was oriented to his room and our policies upon admission. Pulses in feet +2 and he denies numbness or tingling at this time. He is able to move all extremities independently without any concerns noted. Dressing to posterior neck with a small amount of shadowing noted. Ice pack applied. Mikaela on bilateral feet and thigh high TEDs on patient. Oxygen going at 2L per NC. BP low upon admission in which a small 150 bolus was given. BP went from 82/60 to 131/70 and we are continuing to monitor at this time. Applesauce given to patient per request and he is being encouraged to drink plenty of fluids. at bedside. Will continue to monitor.
[2019-05-03] MEDS: METHOCARBAMOL 750 MG TABLET PO PRN ×2 (16:50→20:52)
[2019-05-03] MEDS: metFORMIN 500 MG TABLET PO SCH (16:50)
[2019-05-03] MEDS: HYDROcodone/APAP 5/325MG 1 TAB TABLET PO PRN (19:56)
--- NOTE | 2019-05-03 20:00 | NUR ---
Has been voiding frequently. IVF stopped. Lortab given for c/o surgical pain rating 5/10. Ice pack over surgical site. Dressing removed due to saturation. [address], wound approximated, no active bleeding seen. ABD and cloth tape applied. Will sleep in recliner, spouse in the bed. Call light in reach.
[2019-05-03] MEDS: DOCUSATE SODIUM 100 MG CAPSULE. PO SCH (20:46)
[2019-05-03] MEDS: buPROPion SR 150 MG TABLET.SA PO SCH (20:47)
[2019-05-03] MEDS: ASCORBIC ACID 500 MG TABLET PO SCH (20:47)
[2019-05-03] MEDS ORDERED: NON FORMULARY ITEM (Melatonin 3 MG) PO SCH (21:00)
[2019-05-03] MEDS ORDERED: MAGNESIUM OXIDE 400 MG TABLET PO SCH (21:00)
[2019-05-04] MEDS: HYDROcodone/APAP 5/325MG 1 TAB TABLET PO PRN ×2 (01:53→09:02)
[2019-05-04 03:00] VITALS: BP 148/73
--- NOTE | 2019-05-04 06:24 | NUR ---
Medicated w/ Lortab 5 at 0200. Slept in recliner. Dressing is D/I.
[2019-05-04 06:27] VITALS: BP 118/66
[2019-05-04] MEDS: metFORMIN 500 MG TABLET PO SCH (07:53)
[2019-05-04] MEDS: DOCUSATE SODIUM 100 MG CAPSULE. PO SCH (07:53)
[2019-05-04] MEDS: buPROPion SR 150 MG TABLET.SA PO SCH (07:53)
[2019-05-04] MEDS: ASCORBIC ACID 500 MG TABLET PO SCH (07:53)
[2019-05-04] MEDS ORDERED: HYDR-2761 PO (07:57)
[2019-05-04] MEDS ORDERED: METH750T2 PO (07:57)
[2019-05-04] MEDS ORDERED: DOCU-153 PO (07:57)
--- NOTE | 2019-05-04 07:59 | DISCH ---
DISCHARGE INSTRUCTIONS Condition on Discharge Condition on Discharge: Stable Activity After Discharge Activity Instructions for Disc: Activity as tolerated, Avoid exertion Other activity instructions: no driving for a week Bathing Instructions: Shower-keep dressing dry Diet after Discharge Additional Diet Restrictions: resume home diet Wound Incision Care Wound/Incision Care: Ice to area for comfort Other wound/incision instructi: may remove dressing in 48 hours if dry then may shower, no soaking Contacting the DRHumza after DC Call your doctor for: Concerns you may have Follow-Up Follow up with: Dr. Mcmullen's nurse in 2 weeks [phone] JOAQUIN MCMULLEN MD May 04, 2019 07:59
[2019-05-04] MEDS ORDERED: ATORVASTATIN CALCIUM 40 MG TABLET. PO SCH (08:00)
--- NOTE | 2019-05-04 08:22 | PDOC ---
PROGRESS NOTES Subjective Subjective POD #1 up in chair neck/ incision pain, controlled with medication right shoulder pain resolved Objective Objective Vital Signs Date Time Temp Pulse Resp B/P (MAP) Pulse Ox O2 Delivery O2 Flow Rate FiO2 05/04/19 07:52 66 136/75 05/04/19 07:45 Room Air 05/04/19 06:27 98.2 18 97 2.0 98.2 Intake and Output 05/04/19 07:00 Intake Total 1475 ml Output Total 1610 ml Balance -135 ml Intake Oral 525 ml IV Total 950 ml Output Urine Total 1600 ml Stool Total 0 ml Estimated Blood Loss 10 ml # Voids 5 Physical Exam General: Alert, Oriented X3, Cooperative, No acute distress MUSCULOSKELETAL: Other (CHISHOLM) Skin: Other (incision dry and intact) Plan Plan of Care ok to dc home today f/u 2 weeks Comment Review of Relevant I have reviewed the following items dana (where applicable) has been applied. Labs Laboratory Tests Test 05/03/19 07:45 05/03/19 11:49 05/03/19 16:29 05/04/19 05:55 Glucose (Fingerstick) 110 mg/dL (70-99) 120 mg/dL (70-99) 188 mg/dL (70-99) 141 mg/dL (70-99) Laboratory Tests Test 05/03/19 11:49 05/03/19 16:29 05/04/19 05:55 Glucose (Fingerstick) 120 mg/dL (70-99) 188 mg/dL (70-99) 141 mg/dL (70-99) Medications Current Medications Ondansetron HCl (Zofran) 4 mg PRN Q6HRS PRN IV NAUSEA/VOMITING; Start 05/03/19 at 07:00; Stop 05/03/19 at 20:00; Status DC Fentanyl Citrate (Fentanyl 2ml Vial) 25 mcg PRN Q5MIN PRN IV MILD PAIN 1-3; Start 05/03/19 at 07:00; Stop 05/03/19 at 16:36; Status DC Fentanyl Citrate (Fentanyl 2ml Vial) 50 mcg PRN Q5MIN PRN IV MODERATE TO SEVERE PAIN Last administered on 05/03/19at 12:39; Start 05/03/19 at 07:00; Stop 05/03/19 at 16:36; Status DC Morphine Sulfate (Morphine Sulfate) 1 mg PRN Q10MIN PRN IV SEVERE PAIN 7-10; Start 05/03/19 at 07:00; Stop 05/03/19 at 20:00; Status DC Ringer's Solution 1,000 ml @ 30 mls/hr Q24H IV Last administered on 05/03/19at 08:03; Start 05/03/19 at 07:00; Stop 05/03/19 at 16:36; Status DC Lidocaine HCl (Xylocaine-Mpf 1% 2ml Vial) 2 ml PRN 1X PRN ID PRIOR TO IV START; Start 05/03/19 at 07:00; Stop 05/03/19 at 20:00; Status DC Hydromorphone HCl (Dilaudid) 0.5 mg PRN Q10MIN PRN IV SEV PAIN, Second choice; Start 05/03/19 at 07:00; Stop 05/03/19 at 20:00; Status DC Prochlorperazine Edisylate (Compazine) 5 mg PACU PRN PRN IV NAUSEA, MRX1; Start 05/03/19 at 07:00; Stop 05/03/19 at 20:00; Status DC Bacitracin 84207 unit/Sodium Chloride 1,000 ml @ 1,000 mls/hr 1X ONCE IRR Last administered on 05/03/19at 09:56; Start 05/03/19 at 06:00; Stop 05/03/19 at 06:59; Status DC Vancomycin HCl 250 ml @ 250 mls/hr 1X PREOP PRN IV PRIOR TO PROCEDURE; Start 05/03/19 at 06:00; Stop 05/03/19 at 07:59; Status DC Cefazolin Sodium/ Dextrose 50 ml @ 100 mls/hr 1X PREOP PRN IV pre-op; Start 05/04/19 at 06:00; Stop 05/04/19 at 18:00; Status UNV Gelatin (Gelfoam Size 100) 1 each STK-MED ONCE .ROUTE Last administered on 05/03/19at 09:56; Start 05/03/19 at 07:18; Stop 05/03/19 at 07:19; Status DC Bupivacaine HCl/ Epinephrine Bitart (Sensorcain-Epi 0.5%-1:602922 Mpf) 30 ml STK-MED ONCE .ROUTE Last administered on 05/03/19at 09:56; Start 05/03/19 at 07:18; Stop 05/03/19 at 07:19; Status DC Ketorolac Tromethamine (Toradol Im) 60 mg STK-MED ONCE .ROUTE ; Start 05/03/19 at 07:19; Stop 05/03/19 at 07:19; Status DC Thrombin 20,000 unit STK-MED ONCE TP Last administered on 05/03/19at 09:56; Start 05/03/19 at 07:19; Stop 05/03/19 at 07:19; Status DC Cefazolin Sodium/ Dextrose 50 ml @ 100 mls/hr 1X PREOP PRN IV PRIOR TO PROCEDURE Last administered on 05/03/19at 09:00; Start 05/03/19 at 06:00; Stop 05/04/19 at 05:59; Status DC Propofol 20 ml @ As Directed STK-MED ONCE IV ; Start 05/03/19 at 08:04; Stop 05/03/19 at 08:04; Status DC Dexamethasone Sodium Phosphate (Decadron) 20 mg STK-MED ONCE .ROUTE ; Start 05/03/19 at 08:04; Stop 05/03/19 at 08:04; Status DC Lidocaine HCl (Lidocaine Pf 2% Vial) 5 ml STK-MED ONCE .ROUTE ; Start 05/03/19 at 08:04; Stop 05/03/19 at 08:04; Status DC Ondansetron HCl (Zofran) 4 mg STK-MED ONCE .ROUTE ; Start 05/03/19 at 08:04; Stop 05/03/19 at 08:04; Status DC Phenylephrine HCl (Zay-Synephrine Inj) 10 mg STK-MED ONCE .ROUTE ; Start 05/03/19 at 08:04; Stop 05/03/19 at 08:04; Status DC Succinylcholine Chloride (Anectine) 200 mg STK-MED ONCE .ROUTE ; Start 05/03/19 at 08:04; Stop 05/03/19 at 08:04; Status DC Rocuronium [place] (Zemuron) 50 mg STK-MED ONCE .ROUTE ; Start 05/03/19 at 08:04; Stop 05/03/19 at 08:04; Status DC Midazolam HCl (Versed) 2 mg STK-MED ONCE .ROUTE ; Start 05/03/19 at 08:04; Stop 05/03/19 at 08:05; Status DC Remifentanil HCl (Ultiva) 2 mg STK-MED ONCE IV ; Start 05/03/19 at 08:04; Stop 05/03/19 at 08:05; Status DC Insulin Human Lispro (HumaLOG VIAL for OP,RR ONLY) 0-10 units PRN Q1HR PRN SQ PER PROTOCOL Last administered on 05/03/19at 08:28; Start 05/03/19 at 08:15; Stop 05/03/19 at 16:36; Status DC Propofol 100 ml @ As Directed STK-MED ONCE IV ; Start 05/03/19 at 08:13; Stop 05/03/19 at 08:13; Status DC Glycopyrrolate (Robinul) 1 mg STK-MED ONCE .ROUTE ; Start 05/03/19 at 09:16; Stop 05/03/19 at 09:16; Status DC Ondansetron HCl (Zofran) 4 mg STK-MED ONCE .ROUTE ; Start 05/03/19 at 10:13; Stop 05/03/19 at 10:14; Status DC Neostigmine [place] (Neostigmine Methylsulfate) 5 mg STK-MED ONCE .ROUTE ; Start 05/03/19 at 10:13; Stop 05/03/19 at 10:14; Status DC Ephedrine Sulfate (ePHEDrine PF IN SALINE SYRINGE) 50 mg STK-MED ONCE IV ; Start 05/03/19 at 10:34; Stop 05/03/19 at 10:35; Status DC Desflurane (Suprane) 90 ml STK-MED ONCE IH ; Start 05/03/19 at 10:34; Stop 05/03/19 at 10:35; Status DC Fentanyl Citrate (Fentanyl 2ml Vial) 100 mcg STK-MED ONCE .ROUTE ; Start 05/03/19 at 12:02; Stop 05/03/19 at 12:03; Status DC Aspirin (Ecotrin) 81 mg DAILY PO Last administered on 05/04/19at 07:52; Start 05/04/19 at 09:00 Bupropion HCl (Wellbutrin Sr) 150 mg BID PO Last administered on 05/04/19at 07:53; Start 05/03/19 at 21:00 Lisinopril (Prinivil) 10 mg DAILY PO Last administered on 05/04/19at 07:52; Start 05/04/19 at 09:00 Metformin HCl (Glucophage) 1,000 mg BIDWMEALS PO Last administered on 05/04/19at 07:53; Start 05/03/19 at 17:00 Sucralfate (Carafate) 1 gm PRN DAILY PRN PO STOMACH UPSET; Start 05/03/19 at 13:15 Ascorbic Acid (Vitamin C) 1,000 mg BID PO Last administered on 05/04/19at 07:53; Start 05/03/19 at 21:00 Atorvastatin Calcium (Lipitor) 80 mg DAILY08 PO Last administered on 05/04/19at 07:53; Start 05/04/19 at 08:00 Vitamin D (Vitamin D3) 1,000 unit DAILY PO Last administered on 05/04/19at 07:53; Start 05/04/19 at 09:00 Non-Formulary Medication (Chrom Jose/ [place] (Garcinia Cambogia Tablet)) 1 each DAILY PO ; Start 05/04/19 at 09:00; Stop 05/03/19 at 14:01; Status DC Non-Formulary Medication (Chromium ) 200 mcg DAILY PO ; Start 05/04/19 at 09:00; Stop 05/03/19 at 14:01; Status DC Magnesium Oxide (Magnesium Oxide) 400 mg QHS PO Last administered on 05/03/19at 20:46; Start 05/03/19 at 21:00 Non-Formulary Medication (Melatonin ) 3 mg HS PO ; Start 05/03/19 at 21:00; Stop 05/03/19 at 14:01; Status DC Fentanyl Citrate (Fentanyl 2ml Vial) 50 mcg PRN Q2HR PRN IVP PAIN; Start 05/03/19 at 13:15 Acetaminophen (Tylenol) 650 mg PRN Q6HRS PRN PO MILD PAIN / TEMP; Start 05/03/19 at 13:15 Al Hydroxide/Mg Hydroxide (Mylanta Plus Xs) 30 ml PRN Q3HRS PRN PO HEARTBURN / GAS; Start 05/03/19 at 13:15 Calcium Carbonate/ Glycine (Tums) 500 mg PRN Q3HRS PRN PO INDIGESTION; Start 05/03/19 at 13:15 Diphenhydramine HCl (Benadryl) 25 mg PRN Q6HRS PRN PO ITCHING; Start 05/03/19 at 13:15 Naloxone HCl (Narcan) 0.1 mg PRN Q2MIN PRN IV ADMIN; Start 05/03/19 at 13:15 Sodium Chloride (Normal Saline Flush) 3 ml QSHIFT PRN IV AFTER MEDS AND BLOOD DRAWS; Start 05/03/19 at 13:15 Potassium Chloride/Dextrose/ Sod Cl 1,000 ml @ 75 mls/hr [id number] IV ; Start 05/03/19 at 13:14; Stop 05/04/19 at 04:57; Status DC Methocarbamol (Robaxin) 750 mg TID PRN PO MUSCLE SPASMS Last administered on 05/03/19at 20:52; Start 05/03/19 at 13:15 Docusate Sodium (Colace) 100 mg BID PO Last administered on 05/04/19at 07:53; Start 05/03/19 at 21:00 Acetaminophen/ Hydrocodone Bitart (Lortab 5/325) 1 tab PRN Q6HRS PRN PO MODERATE/ SEVERE PAIN Last administered on 05/04/19at 01:53; Start 05/03/19 at 16:45 Active Scripts Active [place] 5-325 Tablet (Acetaminophen/Hydrocodone Bitart) 1 Each Tablet 1 Tab PO PRN Q6HRS PRN 3 Days Reported Vitamin D (Cholecalciferol (Vitamin D3)) 400 Unit Capsule 400 Unit PO DAILY Triple [place] Complex 3-6-9 (Fish Oil/Borage/Flax/Om3,6,9#1) 400 Mg Capsule 400 Mg PO BID Milk Thistle (Milk Thistle Seed Extract) 140 Mg Capsule 140 Mg PO BID Magnesium (Magnesium Oxide) 400 Mg Capsule 400 Mg PO HS Garcinia Cambogia Tablet (Chrom Jose/[place]) 1 Each Tablet 1 Each PO DAILY Coq10 (Ubidecarenone) 50 Mg Tab.chew 100 Mg PO DAILYWSUP Carafate (Sucralfate) 1 Gm Tablet 1 Gm PO PRN DAILY PRN Aloe Vera 25 Mg Capsule 25 Mg PO DAILY Cinnamon (Cinnamon Bark) 500 Mg Capsule 500 Mg PO TID Lisinopril 10 Mg Tablet 10 Mg PO DAILY Metformin Hcl 500 Mg Tablet 1,000 Mg PO BIDWMEALS Flaxseed (Flaxseed Oil) 1,000 Mg Capsule 1,000 Mg PO DAILYWSUP Ginkgo Biloba 120 Mg Tablet 40 Mg PO DAILY Aspir 81 (Aspirin) 81 Mg Tablet.dr 81 Mg PO DAILY Vitamin C (Ascorbic Acid) 1,000 Mg Tablet 1,000 Mg PO BID Chromium 200 Mcg Tablet 200 Mcg PO DAILY Garlic 1,500 Mg Capsule 1,250 Mg PO BID Multi-Vitamin Daily (Multivitamin) 1 Each Tablet 1 Each PO DAILY Melatonin 3 Mg Tab.rapdis 3 Mg PO HS Atorvastatin Calcium 80 Mg Tablet 80 Mg PO DAILY08 Budeprion Sr (Bupropion Hcl) 150 Mg Tablet.er 150 Mg PO BID Vitals/I & O Vital Sign - Last 24 Hours 05/03/19 05/03/19 05/03/19 05/03/19 11:43 11:43 11:58 12:05 Temp 97.4 97.4 97.4 97.4 Pulse 80 74 Resp 12 14 16 B/P (MAP) 104/61 129/65 Pulse Ox 96 96 94 O2 Delivery Simple Mask Mask Room Air Nasal Cannula Ventilator O2 Flow Rate 8 2.0 05/03/19 05/03/19 05/03/19 05/03/19 12:15 12:30 12:39 12:45 Temp 97.4 97.4 97.4 97.4 Pulse 79 68 66 Resp 14 16 14 16 B/P (MAP) 131/63 131/63 132/60 Pulse Ox 96 93 96 95 O2 Delivery Nasal Cannula Nasal Cannula Nasal Cannula Nasal Cannula O2 Flow Rate 2 2 2.0 2 05/03/19 05/03/19 05/03/19 05/03/19 13:00 13:09 13:30 13:45 Temp 97.4 97.4 97.4 97.4 Pulse 67 70 74 Resp 14 18 18 B/P (MAP) 128/59 82/60 (67) 131/70 (90) Pulse Ox 94 96 94 O2 Delivery Nasal Cannula Nasal Cannula Nasal Cannula Room Air O2 Flow Rate 2 2 2.0 05/03/19 05/03/19 05/03/19 05/03/19 13:59 14:00 14:15 14:40 Temp 97.4 97.4 97.4 97.4 97.4 97.4 Pulse 64 65 70 Resp 18 18 18 B/P (MAP) 130/72 (91) 132/73 (92) 143/68 (93) Pulse Ox 96 96 96 O2 Delivery Nasal Cannula Nasal Cannula Nasal Cannula Nasal Cannula O2 Flow Rate 2.0 2.0 2.0 2.0 05/03/19 05/03/19 05/03/19 05/03/19 15:15 16:15 17:30 18:12 Temp 97.6 97.6 97.8 97.8 97.6 97.6 97.8 97.8 Pulse 75 75 70 74 Resp 18 18 18 18 B/P (MAP) 136/72 (93) 142/70 (94) 150/72 (98) 136/70 (92) Pulse Ox 99 97 96 97 O2 Delivery Nasal Cannula Nasal Cannula Nasal Cannula Nasal Cannula O2 Flow Rate 2.0 2.0 2.0 2.0 05/03/19 05/03/19 05/03/19 05/03/19 19:56 20:38 20:48 23:00 Temp 97.7 97.7 Pulse 64 Resp 20 20 18 B/P (MAP) 120/66 (84) Pulse Ox 2 96 O2 Delivery Nasal Cannula Nasal Cannula Nasal Cannula Nasal Cannula O2 Flow Rate 2.0 2.0 2.0 05/04/19 05/04/19 05/04/19 05/04/19 01:53 02:55 03:00 06:27 Temp 97.7 98.2 97.7 98.2 Pulse 66 59 Resp 20 20 18 18 B/P (MAP) 148/73 (98) 118/66 (83) Pulse Ox 95 97 O2 Delivery Nasal Cannula Nasal Cannula Nasal Cannula O2 Flow Rate 2.0 2.0 2.0 05/04/19 05/04/19 07:45 07:52 Pulse 66 B/P (MAP) 136/75 O2 Delivery Room Air Intake and Output 05/03/19 05/03/19 05/04/19 15:00 23:00 07:00 Intake Total 1075 ml 250 ml 150 ml Output Total 410 ml 1200 ml 0 ml Balance 665 ml -950 ml 150 ml FLYNN JACOBS [employer] May 04, 2019 08:22
[2019-05-04] MEDS ORDERED: ASPIRIN ENTERIC COATED 81 MG TABLET.DR. PO SCH (09:00)
[2019-05-04] MEDS ORDERED: CHOLECALCIFEROL (VITAMIN D3) 1,000 UNIT TABLET PO SCH (09:00)
[2019-05-04] MEDS ORDERED: LISINOPRIL 10 MG TABLET PO SCH (09:00)
[2019-05-04] MEDS ORDERED: CHROMIUM PO SCH (09:00)
[2019-05-04] MEDS ORDERED: [UNRECOGNIZED DRUG - MIXTURE] PO SCH (09:00)
[2019-05-04 11:00] VITALS: BP 107/61
--- NOTE | 2019-05-04 11:00 | NUR ---
Discharge instructions given with prescriptions. Answered questions and concerns. Both pt and spoused verbalized understanding. Demonstrated to spouse how to change dressing. Extra dressing supplies given. Both want to stay for lunch.
--- NOTE | 2019-05-04 12:23 | DS ---
DATE OF DISCHARGE: 05/04/2019 DATE OF SURGERY: 05/03/2019 DISCHARGE DIAGNOSIS: Foraminal narrowing C3-C4 right with right cervical radiculopathy. OPERATION PERFORMED: Posterior cervical hemilaminotomy and medial facetectomy at C3-C4, right. HISTORY OF PRESENT ILLNESS: The patient is a pleasant 68-year-old, who in the past has undergone a fusion from C4 inferiorly from an anterior approach. He then developed problems with a right cervical radiculopathy and was found to have neural foraminal narrowing at C3-C4 on the right. I recommended posterior cervical hemilaminotomy, medial facetectomy, decompression of the nerve root. He understood and wished to go ahead. HOSPITAL COURSE: He was admitted to the floor postoperatively where he is doing very well. He has been up ambulating in the room and in the halls. Physical therapy was initiated and instruction was given to him regarding his activities. His pain is well controlled. He is in good condition to discharge home. He notes improvement in his right shoulder pain. DISCHARGE MEDICATIONS: He will resume his medications per the MRAD. DISCHARGE INSTRUCTIONS: He was instructed regarding incision care, activity restrictions, and expectations for the next several weeks. He will follow up in our office in 2 weeks. He understands to call with any questions or concerns. JOAQUIN MCMULLEN MD DR: OPAL/rigoberto JOB#: [id number] / [id number]
--- NOTE | 2019-05-04 14:10 | NUR ---
Discharged home accompanied by spouse.
--- NOTE | 2019-05-07 16:06 | PATHOLOGY ---
[facility] Accession Number: [id number] . 01 Material submitted: . vertebral column - CERVICAL DECOMPRESSION . 01 Clinical history: . Cervical radicuopathy . 02 Diagnosis: Segments of fibrocartilaginous, fibroadipose, and skeletal muscle tissue and bone, cervical decompression: - Degenerative changes of fibrocartilaginous tissue. . (JPM:joao; 05/07/2019) QMS 05/07/2019 0851 Local . 02 Comment: There is no evidence of an acute inflammatory process or malignancy. . 02 Electronically signed: . Juan Van MD, Pathologist NPI- [id number] . 01 Gross description: . Received in formalin labeled "[place]et, Alessio, cervical decompression," are several pieces of glistening, fibrous tissue measuring 2.0 x 1.5 x 0.3 cm in aggregate dimensions, containing small fragments of possible bone. The tissue is filtered and submitted entirely in cassette A1. (TSD; 05/04/2019) TOB/TOB 05/04/2019 1657 Local . 02 Pathologist provided ICD-10: M50.30 . 02 CPT . 665211 Specimen Comment: A courtesy copy of this report has been sent to [phone], [phone]- Specimen Comment: [id number] Specimen Comment: Report sent to and Performed at: 01 [facility] [address] [facility] [address], [place] [id number] MD Chetan Martin MD Phone: [phone] Performed at: 02 [facility] [address] [place], [place] [id number] MD Juan Van MD Phone: [phone]
== END 2019-05-04 14:10 | disposition home or self-care (01) ==
LOC: SURG 07:04 → 4 SOUTHEST 13:00
PROVIDERS: ADMIT Neurological Surgery; ATTEND Neurological Surgery
DX: M54.12 Radiculopathy, cervical region (principal); M19.90 Unspecified osteoarthritis, unspecified site; M41.9 Scoliosis, unspecified; E11.9 Type 2 diabetes mellitus without complications; I20.9 Angina pectoris, unspecified; K76.9 Liver disease, unspecified; I25.2 Old myocardial infarction
CPT/HCPCS: 63045; 76000; 82962; 97110; 97116; 97162; A7015; G0378; G0379; J0171; J0330; J0696; J1100; J1885; J2001; J2250; J2405; J2704; J2710; J3010; J3490; J7030; J3370

== ENCOUNTER → 2019-12-20 | Outpatient (CLI) | payer MEDICARE, OTHER ==
[~2019-12-20] MED LIST changes: +ASCO100019 PO; -ASCO10002 PO; -BACITRACIN 50,000 UNIT in IV NORMAL SALINE 1000ML BAG 1,000 ML IRR ONE; +DOCU-153 PO; +HYDR-2761 PO; -HYDROmorphone 2 MG/ML VIAL IV PRN; -IV RINGERS,LACTATED 1000ML 1,000 ML IV SCH; -LIDOCAINE 1% PF 2 ML VIAL. ID PRN; +METH750T2 PO; -MORPHINE SULFATE 2 MG/ML VIAL. IV PRN; -ONDANSETRON PF 4 MG/2 ML VIAL. IV PRN; -PROCHLORPERAZINE 10 MG/2 ML VIAL. IV PRN; -VANCOMYCIN 1GM IVPB FOR OMNI 250 ML IV PRN; -fentaNYL PF VIAL 100 MCG/2 ML VIAL IV PRN
--- NOTE | 2019-12-20 15:07 | CARD ---
MR#: [id number] Date of Study: 12/20/2019 Ordering Physician: SHIRA THAKUR, Referring Physician: SHIRA THAKUR, Tech: Millie Patel APPROVED REPORT EXAM: Two-dimensional and M-mode echocardiogram with Doppler and color Doppler. Other Information Quality : AverageHR: 55bpm INDICATION Cardiac Disease: CAD RISK FACTORS Hypertension Hyperlipidemia Diabetes 2D DIMENSIONS RVDd3.9 (2.9-3.5cm)Left Atrium(2D)3.7 (1.6-4.0cm) IVSd1.1 (0.7-1.1cm)Aortic Root(2D)3.1 (2.0-3.7cm) LVDd4.5 (3.9-5.9cm)LVOT Diameter2.0 (1.8-2.4cm) PWd1.1 (0.7-1.1cm)LVDs3.2 (2.5-4.0cm) FS (%) 29.2 %SV51.8 ml LVEF(%)56.1 (>50%) Aortic Valve AoV Peak Heriberto.166.2cm/sAoV VTI30.3cm AO Peak GR.11.1mmHgLVOT Peak Heriberto.131.7cm/s LVOT VTI 27.27cmAO Mean GR.5mmHg GER (VMAX)2.70bm9HEB (VTI)2.95cm2 Mitral Valve MV E Dftpklty10.7cm/sMV DECEL JSYE584el MV A Mzerurpu84.0cm/sMV E Mean Gr.1mmHg MV XUB32diJ/A Ratio1.2 MVA (PHT)4.02cm2 TDI E/Lateral E'8.0E/Medial E'9.2 Pulmonary Valve PV Peak Lnlzotpu91.6cm/sPV Peak Grad.4mmHg Tricuspid Valve TR P. Eaqhixmf811hv/sRAP ASKKEVTQ3hlNq TR Peak Gr.53owPxGXPL71jmQu Pulmonary Vein S1 Ifpwmixn60.7cm/sD2 Asfatpkc65.5cm/s PVa oyffnphp954cudo LEFT VENTRICLE The left ventricle is normal size. There is mild concentric left ventricular hypertrophy. The left ve ntricular systolic function is normal and the ejection fraction is within normal range. The Ejection Fraction is 55-60%. There is normal LV segmental wall motion. Transmitral Doppler flow pattern is Gra de II-pseudonormal filling dynamics. RIGHT VENTRICLE The right ventricle is normal size. There is normal right ventricular wall thickness. The right ventr icular systolic function is normal. ATRIA The left atrium size is normal. The right atrium size is normal. The interatrial septum is intact wit h no evidence for an atrial septal defect or patent foramen ovale as noted on 2-D or Doppler imaging. AORTIC VALVE The aortic valve is normal in structure and function. Doppler and Color Flow revealed no significant aortic regurgitation. There is no significant aortic valvular stenosis. Calculated aortic valve area is 2.86 cm2 with maximum pressure gradient of 12 mmHg and mean pressure gradient of 6 mmHg. MITRAL VALVE The mitral valve is normal in structure and function. There is no evidence of mitral valve prolapse. There is no mitral valve stenosis. Doppler and Color-flow revealed trace mitral regurgitation. TRICUSPID VALVE The tricuspid valve is normal in structure and function. Doppler and Color Flow revealed trace tricus pid regurgitation with an estimated PAP of 29 mmHg. There is no tricuspid valve prolapse or vegetatio n. PULMONIC VALVE The pulmonic valve is not well visualized. Doppler and Color Flow revealed trace pulmonic valvular re gurgitation. GREAT VESSELS The aortic root is normal in size. The IVC is normal in size and collapses >50% with inspiration. PERICARDIAL EFFUSION There is no evidence of significant pericardial effusion. Critical Notification Critical Value: No <Conclusion> The left ventricle is normal size. The left ventricular systolic function is normal and the ejection fraction is within normal range. The Ejection Fraction is 55-60%. There is mild concentric left ventricular hypertrophy. Doppler and Color Flow revealed no significant aortic regurgitation. There is no significant aortic valvular stenosis. Doppler and Color-flow revealed trace mitral regurgitation. Doppler and Color Flow revealed trace tricuspid regurgitation with an estimated PAP of 29 mmHg. Signed by : Lamine Sapp MD Electronically Approved : 12/20/2019 15:06:40
== END | disposition home or self-care (01) ==
LOC: EDSEX → ECHO 13:44
PROVIDERS: ATTEND Internal Medicine Cardiovascular Disease
DX: I25.10 Atherosclerotic heart disease of native coronary artery without angina pectoris (principal); I51.7 Cardiomegaly
CPT/HCPCS: 93306

== ENCOUNTER → 2019-12-28 | Outpatient (CLI) | payer MEDICARE, OTHER ==
[2019-12-28 11:05] LABS: ALBUMIN 3.8 g/dL (3.4-5.0); CALCIUM 9.9 mg/dL (8.5-10.1); CREATININE 0.9 mg/dL (0.7-1.3); GFR 83.7; POTASSIUM 4.3 mmol/L (3.5-5.1); TOTAL BILIRUBIN 0.6 mg/dL (0.2-1.0); TOTAL PROTEIN 7.7 g/dL (6.4-8.2)
[2019-12-28 11:08] LABS: CHOLESTEROL/HDL RATIO 2.6
== END | disposition home or self-care (01) ==
LOC: LAB 10:16
PROVIDERS: ATTEND Internal Medicine Cardiovascular Disease
DX: I25.10 Atherosclerotic heart disease of native coronary artery without angina pectoris (principal)
CPT/HCPCS: 80053; 80061; 83721